=== PATIENT | female | born 1960 | race Caucasian/White ===

== ENCOUNTER 2020-08-20 15:09 | Inpatient (IN) ==
[2020-08-20] MEDS ORDERED: Naloxone 0.4 MG/ML INJ IVP PRN (17:33)
[2020-08-20] MEDS ORDERED: Vancomycin 1 EACH in 0.9 % Sodium Chloride 250 ML IVPB SCH (18:00)
[2020-08-20] MEDS ORDERED: Perflutren Lipid Microsphere 1.3 ML in 0.9 % Sodium Chloride 8.7 ML IVP PRN (18:05)
[2020-08-20] MEDS ORDERED: D5% in Water 1,000 ML IVC PRN (18:07)
[2020-08-20] MEDS ORDERED: Dextrose Gel 15 GM/37.5 ML TUBE PO PRN ×2 (18:07)
[2020-08-20] MEDS ORDERED: *HR* Dextrose 50 % in Water (Vial) 50 ML VIAL IVP PRN (18:07)
[2020-08-20] MEDS ORDERED: Vancomycin 1,250 MG/262.5 ML IV.SOLN IVPB ONE (18:26)
[2020-08-20] MEDS: Insulin LISPRO 300 UNITS/3 ML VIAL SUBQ SCH (18:27)
[2020-08-20] MEDS: Heparin 25,000UNIT/250ML 1/2NS 25,000 UNIT/250 ML IV.SOLN IVC SCH (18:27)
[2020-08-20 18:28] LABS: ABG Base Excess 3 mEq/L (-2 to 3); ABG HCO3 27 mEq/L (21-27); ABG Oxygen Saturation 98 % (95-98); ABG PCO2 40 mmHg (35-45); ABG PH 7.44 pH Units (7.32-7.45); ABG PO2 106 mmHg (85-104); ABG TCO2 29 mEq/L (20-26); Blood Gas Modality ASSIST CONTROL; Blood Gas VT 400 cc
[2020-08-20 18:38] LABS: Estimated Average Glucose 134 mg/dl; Hemoglobin A1C 6.3 %
[2020-08-20] MEDS ORDERED: Isovue-370 500 ML BOTTLE IVP ONE (19:05)
[2020-08-20] MEDS ORDERED: Furosemide 40 MG/4 ML VIAL IVP ONE (19:07)
[2020-08-20] MEDS: Piperacillin/Tazobactam 3.375 GM in 0.9 % Sodium Chloride Mini Bag 100 ML IVPB SCH (20:48)
[2020-08-21 00:25] LABS: Hematocrit 22.2 % (35.3-44.9); Hemoglobin 6.9 g/dL (11.5-15.4); Mean Corpuscular HGB Conc 31.1 g/dL (31.6-35.5); Mean Corpuscular Hemoglobin 28.6 pg (28.0-33.3); Mean Corpuscular Volume 92.1 fL (83.0-100.0); Mean Platelet Volume 9.3 fL (9.4-12.4); Monocytes # 1.8 K/mcL (0.0-1.3); Platelet Count 332 K/mcL (140-400); Red Blood Count 2.41 M/mcL (3.82-4.97); Red Cell Distribution Width 20.6 % (11.5-14.5)
[2020-08-21] MEDS ORDERED: *HR* Heparin 5,000 UNIT/ML VIAL IVP PRN (00:38)
[2020-08-21 00:42] LABS: Calcium 9.1 mg/dL (8.6-10.3); Potassium 4.1 mEq/L (3.5-5.1)
[2020-08-21 00:45] LABS: Troponin I 1.28 ng/mL (< 0.04)
[2020-08-21] MEDS: *HR* Heparin 5,000 UNIT/ML VIAL IVP PRN ×2 (00:52→16:57)
[2020-08-21 01:02] LABS: Anisocytosis 1+ (Not Present); Eosinophils # 0.5 K/mcL (0.0-0.6); Lymphocytes # 2.3 K/mcL (0.6-4.6); Neutrophils # 18.4 K/mcL (1.6-8.9); Platelet Estimate Normal (Normal); Poikilocytosis 1+ (Not Present); Toxic Granulation Present (Not Present)
[2020-08-21 01:03] LABS: Toxic Vacuolation Present (Not Present)
[2020-08-21] MEDS: Insulin LISPRO 300 UNITS/3 ML VIAL SUBQ SCH ×4 (01:38→18:43)
[2020-08-21] MEDS: Piperacillin/Tazobactam 3.375 GM in 0.9 % Sodium Chloride Mini Bag 100 ML IVPB SCH ×2 (04:15→18:43)
[2020-08-21] MEDS ORDERED: *HR* Heparin 10,000 UNIT/10 ML VIAL IV PRN (07:50)
[2020-08-21] MEDS ORDERED: 0.9 % Sodium Chloride 250 ML IVC PRN (07:50)
[2020-08-21] MEDS ORDERED: 0.9 % Sodium Chloride 1,000 ML PRIME SCH (08:00)
[2020-08-21 10:13] LABS: Hepatitis B Surface Antibody < 3.10 mIU/mL
[2020-08-21 10:24] LABS: Hepatitis B Surface Antigen Nonreactive (Nonreactive)
[2020-08-21] MEDS ORDERED: 0.9 % Sodium Chloride 250 ML IVC SCH (15:00)
[2020-08-21] MEDS: Ondansetron 4 MG/2 ML VIAL IVP PRN (16:23)
[2020-08-21] MEDS ORDERED: Pantoprazole 40 MG VIAL IVP ONE (17:45)
[2020-08-21] MEDS ORDERED: Pantoprazole 40 MG VIAL IVP SCH (18:00)
[2020-08-21 18:42] LABS: Hematocrit 27.5 % (35.3-44.9)
[2020-08-21] MEDS: Pantoprazole 40 MG in 0.9 % Sodium Chloride Mini Bag 100 ML IVC SCH (18:42)
[2020-08-21 18:50] LABS: Hemoglobin 8.8 g/dL (11.5-15.4)
[2020-08-22] MEDS: Pantoprazole 40 MG in 0.9 % Sodium Chloride Mini Bag 100 ML IVC SCH ×6 (00:03→23:57)
[2020-08-22] MEDS: Insulin LISPRO 300 UNITS/3 ML VIAL SUBQ SCH ×4 (00:15→18:06)
[2020-08-22] MEDS ORDERED: *HR* Labetalol 20 MG/4 ML SYRINGE IVP ONE (01:51)
[2020-08-22] MEDS: Piperacillin/Tazobactam 3.375 GM in 0.9 % Sodium Chloride Mini Bag 100 ML IVPB SCH ×2 (06:07→17:05)
[2020-08-22 07:15] LABS: Hematocrit 24.8 % (35.3-44.9); Hemoglobin 7.8 g/dL (11.5-15.4); Mean Corpuscular HGB Conc 31.5 g/dL (31.6-35.5); Mean Corpuscular Hemoglobin 28.6 pg (28.0-33.3); Mean Corpuscular Volume 90.8 fL (83.0-100.0); Mean Platelet Volume 9.3 fL (9.4-12.4); Platelet Count 317 K/mcL (140-400); Red Blood Count 2.73 M/mcL (3.82-4.97); Red Cell Distribution Width 19.7 % (11.5-14.5); White Blood Count 18.1 K/mcL (4.3-11.1)
[2020-08-22] MEDS ORDERED: *HR* Heparin 10,000 UNIT/10 ML VIAL IV PRN (07:24)
[2020-08-22] MEDS ORDERED: 0.9 % Sodium Chloride 250 ML IVC PRN (07:24)
[2020-08-22] MEDS ORDERED: 0.9 % Sodium Chloride 1,000 ML PRIME SCH (07:30)
[2020-08-22 07:34] LABS: Calcium 8.9 mg/dL (8.6-10.3); Potassium 3.2 mEq/L (3.5-5.1)
[2020-08-22] MEDS ORDERED: Lidocaine Viscous Oral Soln 15 ML SOLUTION ONE (08:06)
[2020-08-22 10:13] LABS: Hematocrit 25.1 % (35.3-44.9); Hemoglobin 8.2 g/dL (11.5-15.4)
[2020-08-22] MEDS: *HR* Metoprolol 5 MG/5 ML VIAL IVP SCH ×3 (11:51→23:57)
[2020-08-22] MEDS: Valproic Acid INJ 250 MG in 0.9 % Sodium Chloride 100 ML IVPB SCH ×2 (17:23→23:56)
[2020-08-23] MEDS: Insulin LISPRO 300 UNITS/3 ML VIAL SUBQ SCH ×4 (00:24→16:54)
[2020-08-23 01:36] LABS: Hematocrit 26.3 % (35.3-44.9); Hemoglobin 8.1 g/dL (11.5-15.4); Mean Corpuscular HGB Conc 30.8 g/dL (31.6-35.5); Mean Corpuscular Hemoglobin 28.2 pg (28.0-33.3); Mean Corpuscular Volume 91.6 fL (83.0-100.0); Mean Platelet Volume 8.9 fL (9.4-12.4); Platelet Count 296 K/mcL (140-400); Red Blood Count 2.87 M/mcL (3.82-4.97); Red Cell Distribution Width 19.3 % (11.5-14.5); White Blood Count 14.9 K/mcL (4.3-11.1)
[2020-08-23 01:55] LABS: Potassium 3.5 mEq/L (3.5-5.1)
[2020-08-23] MEDS: Pantoprazole 40 MG in 0.9 % Sodium Chloride Mini Bag 100 ML IVC SCH (05:03)
[2020-08-23] MEDS: Piperacillin/Tazobactam 3.375 GM in 0.9 % Sodium Chloride Mini Bag 100 ML IVPB SCH ×2 (06:00→16:55)
[2020-08-23] MEDS: *HR* Metoprolol 5 MG/5 ML VIAL IVP SCH ×3 (06:01→16:55)
[2020-08-23] MEDS ORDERED: 0.9 % Sodium Chloride 1,000 ML IVC SCH (08:00)
[2020-08-23] MEDS: Valproic Acid INJ 250 MG in 0.9 % Sodium Chloride 100 ML IVPB SCH ×2 (08:43→15:38)
[2020-08-23] MEDS ORDERED: *HR* Labetalol 20 MG/4 ML SYRINGE IVP ONE ×2 (08:51→15:10)
[2020-08-23] MEDS ORDERED: Vancomycin Oral Soln 125 MG/2.5 ML UDC GTUBE ONE (09:00)
[2020-08-23] MEDS: Heparin 25,000UNIT/250ML 1/2NS 25,000 UNIT/250 ML IV.SOLN IVC SCH (16:55)
[2020-08-23] MEDS: Pantoprazole 40 MG VIAL IVP SCH (16:55)
[2020-08-23] MEDS ORDERED: Lidocaine -MPF 2% 2 ML VIAL ONE (18:45)
[2020-08-23] MEDS ORDERED: *HR* Propofol 200 MG/20 ML VIAL IVP ONE (18:45)
[2020-08-24] MEDS: Valproic Acid INJ 250 MG in 0.9 % Sodium Chloride 100 ML IVPB SCH (00:18)
[2020-08-24] MEDS: *HR* Metoprolol 5 MG/5 ML VIAL IVP SCH ×2 (00:19→05:43)
[2020-08-24] MEDS: Insulin LISPRO 300 UNITS/3 ML VIAL SUBQ SCH ×4 (00:19→17:37)
[2020-08-24 03:30] LABS: Hematocrit 26.2 % (35.3-44.9); Hemoglobin 7.9 g/dL (11.5-15.4); Mean Corpuscular HGB Conc 30.2 g/dL (31.6-35.5); Mean Corpuscular Hemoglobin 28.3 pg (28.0-33.3); Mean Corpuscular Volume 93.9 fL (83.0-100.0); Mean Platelet Volume 9.2 fL (9.4-12.4); Platelet Count 278 K/mcL (140-400); Red Blood Count 2.79 M/mcL (3.82-4.97); White Blood Count 10.4 K/mcL (4.3-11.1)
[2020-08-24 03:45] LABS: Calcium 8.8 mg/dL (8.6-10.3); Potassium 3.1 mEq/L (3.5-5.1)
[2020-08-24] MEDS: Piperacillin/Tazobactam 3.375 GM in 0.9 % Sodium Chloride Mini Bag 100 ML IVPB SCH ×2 (05:42→17:36)
[2020-08-24] MEDS: Pantoprazole 40 MG VIAL IVP SCH (05:43)
[2020-08-24] MEDS ORDERED: *HR* LORazepam 0.5 MG TABLET GTUBE PRN (07:41)
[2020-08-24] MEDS ORDERED: Potassium Chloride 40 MEQ, Lidocaine 1% 2 ML in 0.9 % Sodium Chloride 500 ML IVPB ONE (07:41)
[2020-08-24] MEDS: Cyanocobalamin (B-12) 1,000 MCG TABLET GTUBE SCH (08:55)
[2020-08-24] MEDS: Lactobacillus 1 EACH CAP.SPRINK GTUBE SCH ×2 (11:11→20:36)
[2020-08-24] MEDS: Metoprolol 100 MG TABLET GTUBE SCH ×2 (11:11→20:35)
[2020-08-24] MEDS: QUEtiapine Fumarate 100 MG TABLET GTUBE SCH ×2 (11:11→20:35)
[2020-08-24] MEDS: lisinopriL 20 MG TABLET GTUBE SCH ×2 (11:11→20:35)
[2020-08-24] MEDS: Folic Acid 1 MG TABLET GTUBE SCH (11:12)
[2020-08-24] MEDS: Pyridoxine (B-6) 50 MG TABLET GTUBE SCH (11:12)
[2020-08-24] MEDS: Valproic Acid Oral Soln 250 MG/5 ML UDC GTUBE SCH ×3 (11:12→20:36)
[2020-08-24] MEDS: Psyllium 1 PACKET POWD.PACK GTUBE SCH ×2 (15:06→20:36)
[2020-08-25] MEDS: Insulin LISPRO 300 UNITS/3 ML VIAL SUBQ SCH ×4 (00:30→18:42)
[2020-08-25 03:50] LABS: Hemoglobin 7.8 g/dL (11.5-15.4); Mean Corpuscular Hemoglobin 28.4 pg (28.0-33.3); Mean Corpuscular Volume 94.5 fL (83.0-100.0); Mean Platelet Volume 9.4 fL (9.4-12.4); Platelet Count 266 K/mcL (140-400); Red Blood Count 2.75 M/mcL (3.82-4.97); White Blood Count 10.8 K/mcL (4.3-11.1)
[2020-08-25 04:11] LABS: Calcium 8.7 mg/dL (8.6-10.3); Potassium 3.4 mEq/L (3.5-5.1)
[2020-08-25] MEDS: Piperacillin/Tazobactam 3.375 GM in 0.9 % Sodium Chloride Mini Bag 100 ML IVPB SCH (05:27)
[2020-08-25] MEDS: Psyllium 1 PACKET POWD.PACK GTUBE SCH ×3 (08:53→20:27)
[2020-08-25] MEDS: Valproic Acid Oral Soln 250 MG/5 ML UDC GTUBE SCH ×3 (08:53→20:27)
[2020-08-25] MEDS: Lactobacillus 1 EACH CAP.SPRINK GTUBE SCH ×2 (08:53→20:26)
[2020-08-25] MEDS: Metoprolol 100 MG TABLET GTUBE SCH (08:53)
[2020-08-25] MEDS: lisinopriL 20 MG TABLET GTUBE SCH ×2 (08:53→20:27)
[2020-08-25] MEDS: QUEtiapine Fumarate 100 MG TABLET GTUBE SCH ×2 (08:53→20:27)
[2020-08-25] MEDS: Pyridoxine (B-6) 50 MG TABLET GTUBE SCH (08:54)
[2020-08-25 09:11] LABS: Magnesium 1.8 mg/dL (1.6-2.6)
[2020-08-25] MEDS: Folic Acid 1 MG TABLET GTUBE SCH (10:41)
[2020-08-25] MEDS: Renal Vitamin 1 CAP CAPSULE PO SCH (10:41)
[2020-08-25] MEDS: Isosorbide MONOnitrate (24 HR) 30 MG TAB.ER.24H PO SCH (11:37)
[2020-08-25] MEDS: cefTRIAXone 2,000 MG in Water for inj. (sterile) 20 ML IVP SCH (11:37)
[2020-08-25 14:59] LABS: Total Volume 24 Hour,Urine 0.55 Liters (0.60-1.60)
[2020-08-26 01:57] LABS: Hematocrit 25.1 % (35.3-44.9); Hemoglobin 7.4 g/dL (11.5-15.4); Mean Corpuscular HGB Conc 29.5 g/dL (31.6-35.5); Mean Corpuscular Hemoglobin 27.9 pg (28.0-33.3); Mean Corpuscular Volume 94.7 fL (83.0-100.0); Mean Platelet Volume 9.7 fL (9.4-12.4); Platelet Count 261 K/mcL (140-400); Red Blood Count 2.65 M/mcL (3.82-4.97); Red Cell Distribution Width 18.7 % (11.5-14.5); White Blood Count 12.4 K/mcL (4.3-11.1)
[2020-08-26 02:16] LABS: Calcium 8.6 mg/dL (8.6-10.3); Potassium 3.3 mEq/L (3.5-5.1)
[2020-08-26] MEDS: Insulin LISPRO 300 UNITS/3 ML VIAL SUBQ SCH ×4 (05:56→22:11)
[2020-08-26] MEDS: QUEtiapine Fumarate 100 MG TABLET GTUBE SCH ×2 (07:48→22:22)
[2020-08-26] MEDS: lisinopriL 20 MG TABLET GTUBE SCH ×2 (07:48→22:22)
[2020-08-26] MEDS: Psyllium 1 PACKET POWD.PACK GTUBE SCH ×3 (07:49→22:22)
[2020-08-26] MEDS: Lactobacillus 1 EACH CAP.SPRINK GTUBE SCH ×2 (07:49→22:22)
[2020-08-26] MEDS: Cyanocobalamin (B-12) 1,000 MCG TABLET GTUBE SCH (07:49)
[2020-08-26] MEDS: Pyridoxine (B-6) 50 MG TABLET GTUBE SCH (07:49)
[2020-08-26] MEDS: Isosorbide MONOnitrate (24 HR) 30 MG TAB.ER.24H PO SCH (07:49)
[2020-08-26] MEDS: Renal Vitamin 1 CAP CAPSULE PO SCH (07:49)
[2020-08-26] MEDS: Valproic Acid Oral Soln 250 MG/5 ML UDC GTUBE SCH ×3 (07:49→22:22)
[2020-08-26] MEDS ORDERED: Potassium Chloride 40 MEQ, Lidocaine 1% 2 ML in 0.9 % Sodium Chloride 500 ML IVPB ONE (08:08)
[2020-08-26] MEDS ORDERED: 0.9 % Sodium Chloride 250 ML IVC PRN (08:40)
[2020-08-26] MEDS ORDERED: *HR* Heparin 10,000 UNIT/10 ML VIAL IV PRN (08:40)
[2020-08-26 09:03] LABS: Hematocrit 24.8 % (35.3-44.9); Hemoglobin 7.3 g/dL (11.5-15.4)
[2020-08-26] MEDS: cefTRIAXone 2,000 MG in Water for inj. (sterile) 20 ML IVP SCH (13:13)
[2020-08-26] MEDS: Folic Acid 1 MG TABLET GTUBE SCH (13:13)
[2020-08-27 02:00] LABS: Hematocrit 25.9 % (35.3-44.9); Hemoglobin 7.7 g/dL (11.5-15.4); Mean Corpuscular HGB Conc 29.7 g/dL (31.6-35.5); Mean Corpuscular Hemoglobin 28.2 pg (28.0-33.3); Mean Corpuscular Volume 94.9 fL (83.0-100.0); Mean Platelet Volume 9.9 fL (9.4-12.4); Platelet Count 285 K/mcL (140-400); Red Blood Count 2.73 M/mcL (3.82-4.97); Red Cell Distribution Width 18.3 % (11.5-14.5); White Blood Count 10.6 K/mcL (4.3-11.1)
[2020-08-27 02:16] LABS: Calcium 8.6 mg/dL (8.6-10.3); Potassium 3.3 mEq/L (3.5-5.1)
[2020-08-27] MEDS: Insulin LISPRO 300 UNITS/3 ML VIAL SUBQ SCH ×4 (09:03→18:37)
[2020-08-27] MEDS: hydrALAZINE 25 MG TABLET GTUBE SCH ×3 (09:04→18:38)
[2020-08-27] MEDS: lisinopriL 20 MG TABLET GTUBE SCH ×2 (09:05→22:17)
[2020-08-27] MEDS: Cyanocobalamin (B-12) 1,000 MCG TABLET GTUBE SCH (09:06)
[2020-08-27] MEDS: QUEtiapine Fumarate 100 MG TABLET GTUBE SCH ×2 (09:06→22:17)
[2020-08-27] MEDS: Folic Acid 1 MG TABLET GTUBE SCH (09:07)
[2020-08-27] MEDS: Isosorbide MONOnitrate (24 HR) 30 MG TAB.ER.24H PO SCH (09:07)
[2020-08-27] MEDS: Psyllium 1 PACKET POWD.PACK GTUBE SCH ×3 (09:08→22:17)
[2020-08-27] MEDS: Renal Vitamin 1 CAP CAPSULE PO SCH (09:08)
[2020-08-27] MEDS: Pyridoxine (B-6) 50 MG TABLET GTUBE SCH (09:08)
[2020-08-27] MEDS: Valproic Acid Oral Soln 250 MG/5 ML UDC GTUBE SCH ×3 (09:08→22:17)
[2020-08-27] MEDS: Lactobacillus 1 EACH CAP.SPRINK GTUBE SCH ×2 (09:08→22:17)
[2020-08-27] MEDS: Ondansetron 4 MG/2 ML VIAL IVP PRN (09:58)
[2020-08-27] MEDS: cefTRIAXone 2,000 MG in Water for inj. (sterile) 20 ML IVP SCH (11:54)
[2020-08-27] MEDS ORDERED: Potassium Chloride Elixir 20 MEQ/15 ML UDC GTUBE ONE (14:39)
[2020-08-28] MEDS: hydrALAZINE 25 MG TABLET GTUBE SCH ×5 (00:56→23:16)
[2020-08-28] MEDS: Insulin LISPRO 300 UNITS/3 ML VIAL SUBQ SCH ×5 (00:57→23:16)
[2020-08-28 08:18] LABS: Calcium 8.6 mg/dL (8.6-10.3); Potassium 3.5 mEq/L (3.5-5.1)
[2020-08-28 08:28] LABS: Hemoglobin 7.3 g/dL (11.5-15.4); Mean Corpuscular HGB Conc 29.2 g/dL (31.6-35.5); Mean Corpuscular Hemoglobin 27.9 pg (28.0-33.3); Mean Corpuscular Volume 95.4 fL (83.0-100.0); Mean Platelet Volume 9.9 fL (9.4-12.4); Platelet Count 286 K/mcL (140-400); Red Blood Count 2.62 M/mcL (3.82-4.97); Red Cell Distribution Width 18.1 % (11.5-14.5); White Blood Count 11.6 K/mcL (4.3-11.1)
[2020-08-28] MEDS: QUEtiapine Fumarate 100 MG TABLET GTUBE SCH ×2 (09:00→21:16)
[2020-08-28] MEDS: Isosorbide MONOnitrate (24 HR) 30 MG TAB.ER.24H PO SCH (09:01)
[2020-08-28] MEDS: lisinopriL 20 MG TABLET GTUBE SCH ×2 (09:01→21:17)
[2020-08-28 10:40] LABS: Influenza A PCR Negative (Negative); Influenza B PCR Negative (Negative); Resp. Syncytial Virus PCR Negative (Negative)
[2020-08-28] MEDS: Cyanocobalamin (B-12) 1,000 MCG TABLET GTUBE SCH (10:41)
[2020-08-28] MEDS: Pyridoxine (B-6) 50 MG TABLET GTUBE SCH (10:42)
[2020-08-28] MEDS: Renal Vitamin 1 CAP CAPSULE PO SCH (10:42)
[2020-08-28] MEDS: Folic Acid 1 MG TABLET GTUBE SCH (10:42)
[2020-08-28] MEDS: Psyllium 1 PACKET POWD.PACK GTUBE SCH ×3 (10:42→21:17)
[2020-08-28] MEDS: Valproic Acid Oral Soln 250 MG/5 ML UDC GTUBE SCH ×3 (10:42→23:03)
[2020-08-28] MEDS: Lactobacillus 1 EACH CAP.SPRINK GTUBE SCH ×2 (10:43→21:17)
[2020-08-28 10:47] LABS: SARS-CoV-2 by PCR (In House) Negative (Negative)
[2020-08-28] MEDS ORDERED: Acetaminophen IV 500 MG/50 ML BAG IVPB ONE (11:19)
[2020-08-28] MEDS: cefTRIAXone 2,000 MG in Water for inj. (sterile) 20 ML IVP SCH (11:43)
[2020-08-28] MEDS: MethylPREDNISolone 40 MG/ML VIAL IVP SCH ×2 (12:30→21:16)
[2020-08-28] MEDS ORDERED: SODIUM CHLORIDE/NAHCO3/KCL/PEG 4,000 ML SOLN.RECON PO ONE (17:00)
[2020-08-29 02:52] LABS: Hematocrit 26.2 % (35.3-44.9); Hemoglobin 8.1 g/dL (11.5-15.4); Mean Corpuscular HGB Conc 30.9 g/dL (31.6-35.5); Mean Corpuscular Hemoglobin 28.3 pg (28.0-33.3); Mean Corpuscular Volume 91.6 fL (83.0-100.0); Mean Platelet Volume 9.9 fL (9.4-12.4); Platelet Count 306 K/mcL (140-400); Red Blood Count 2.86 M/mcL (3.82-4.97); Red Cell Distribution Width 17.4 % (11.5-14.5); White Blood Count 16.8 K/mcL (4.3-11.1)
[2020-08-29 03:28] LABS: Calcium 8.9 mg/dL (8.6-10.3); Potassium 4.4 mEq/L (3.5-5.1)
[2020-08-29] MEDS: hydrALAZINE 25 MG TABLET GTUBE SCH ×3 (04:52→17:42)
[2020-08-29] MEDS: MethylPREDNISolone 40 MG/ML VIAL IVP SCH ×3 (04:52→20:05)
[2020-08-29] MEDS: Insulin LISPRO 300 UNITS/3 ML VIAL SUBQ SCH ×3 (04:53→17:43)
[2020-08-29] MEDS ORDERED: 0.9 % Sodium Chloride 2,000 ML ONE (07:12)
[2020-08-29] MEDS ORDERED: 0.9 % Sodium Chloride 250 ML IVC PRN (08:14)
[2020-08-29] MEDS ORDERED: *HR* Heparin 10,000 UNIT/10 ML VIAL IV PRN ×2 (08:14)
[2020-08-29] MEDS ORDERED: 0.9 % Sodium Chloride 1,000 ML PRIME SCH (08:15)
[2020-08-29] MEDS: Valproic Acid Oral Soln 250 MG/5 ML UDC GTUBE SCH ×3 (10:07→20:05)
[2020-08-29] MEDS: lisinopriL 20 MG TABLET GTUBE SCH ×2 (10:08→20:03)
[2020-08-29] MEDS: Isosorbide MONOnitrate (24 HR) 30 MG TAB.ER.24H PO SCH (10:08)
[2020-08-29] MEDS: Renal Vitamin 1 CAP CAPSULE PO SCH (10:09)
[2020-08-29] MEDS: Cyanocobalamin (B-12) 1,000 MCG TABLET GTUBE SCH (10:09)
[2020-08-29] MEDS: Lactobacillus 1 EACH CAP.SPRINK GTUBE SCH ×2 (10:09→20:03)
[2020-08-29] MEDS: Folic Acid 1 MG TABLET GTUBE SCH (10:09)
[2020-08-29] MEDS: Psyllium 1 PACKET POWD.PACK GTUBE SCH ×3 (10:09→20:03)
[2020-08-29] MEDS: Pyridoxine (B-6) 50 MG TABLET GTUBE SCH (10:09)
[2020-08-29] MEDS: QUEtiapine Fumarate 100 MG TABLET GTUBE SCH ×2 (10:10→20:04)
[2020-08-29] MEDS ORDERED: Lidocaine -MPF 2% 5 ML VIAL ONE (12:18)
[2020-08-29] MEDS ORDERED: *HR* Propofol 200 MG/20 ML VIAL IVP ONE ×2 (12:18→13:15)
[2020-08-29] MEDS: cefTRIAXone 2,000 MG in Water for inj. (sterile) 20 ML IVP SCH (12:31)
[2020-08-29] MEDS ORDERED: Simethicone 40 MG/0.6 ML MLS IR ONE (12:32)
[2020-08-29] MEDS ORDERED: *HR* Metoprolol 5 MG/5 ML VIAL IVP ONE (12:52)
[2020-08-29] MEDS: GuaiFENesin Liq 200 MG/10 ML UDC GTUBE PRN (15:05)
[2020-08-29] MEDS: Meropenem 500 MG in 0.9 % Sodium Chloride Mini Bag 100 ML IVPB SCH (16:34)
[2020-08-30 01:33] LABS: Basophils % 0.1 %; Hematocrit 26.6 % (35.3-44.9); Hemoglobin 8.4 g/dL (11.5-15.4); Immature Granulocytes % 0.5 % (0-4); Lymphocytes # 0.7 K/mcL (0.6-4.6); Lymphocytes % 6.2 %; Mean Corpuscular HGB Conc 31.6 g/dL (31.6-35.5); Mean Corpuscular Hemoglobin 28.9 pg (28.0-33.3); Mean Corpuscular Volume 91.4 fL (83.0-100.0); Monocytes # 0.2 K/mcL (0.0-1.3); Monocytes % 1.5 %; Neutrophils # 10.8 K/mcL (1.6-8.9); Platelet Count 370 K/mcL (140-400); Red Blood Count 2.91 M/mcL (3.82-4.97); Red Cell Distribution Width 17.6 % (11.5-14.5); Segmented Neutrophils % 91.7 %; White Blood Count 11.8 K/mcL (4.3-11.1)
[2020-08-30 01:54] LABS: Calcium 8.5 mg/dL (8.6-10.3); Potassium 4.3 mEq/L (3.5-5.1)
[2020-08-30] MEDS: Insulin LISPRO 300 UNITS/3 ML VIAL SUBQ SCH ×4 (02:12→18:10)
[2020-08-30] MEDS: hydrALAZINE 25 MG TABLET GTUBE SCH ×4 (02:12→18:09)
[2020-08-30] MEDS: MethylPREDNISolone 40 MG/ML VIAL IVP SCH ×2 (03:31→11:44)
[2020-08-30] MEDS: Renal Vitamin 1 CAP CAPSULE PO SCH (09:20)
[2020-08-30] MEDS: QUEtiapine Fumarate 100 MG TABLET GTUBE SCH ×2 (09:20→21:06)
[2020-08-30] MEDS: Lactobacillus 1 EACH CAP.SPRINK GTUBE SCH ×2 (09:20→21:06)
[2020-08-30] MEDS: Folic Acid 1 MG TABLET GTUBE SCH (09:20)
[2020-08-30] MEDS: Isosorbide MONOnitrate (24 HR) 30 MG TAB.ER.24H PO SCH (09:21)
[2020-08-30] MEDS: lisinopriL 20 MG TABLET GTUBE SCH ×2 (09:21→21:06)
[2020-08-30] MEDS: Cyanocobalamin (B-12) 1,000 MCG TABLET GTUBE SCH (09:21)
[2020-08-30] MEDS: Pyridoxine (B-6) 50 MG TABLET GTUBE SCH (09:22)
[2020-08-30] MEDS: Valproic Acid Oral Soln 250 MG/5 ML UDC GTUBE SCH ×3 (09:22→21:06)
[2020-08-30] MEDS: Aspirin 81 MG TAB.CHEW GTUBE SCH (09:22)
[2020-08-30] MEDS: Psyllium 1 PACKET POWD.PACK GTUBE SCH ×3 (09:22→21:06)
[2020-08-30] MEDS ORDERED: Insulin DETEMIR 100 UNIT/ML X5UNITS SUBQ SCH (11:00)
[2020-08-30] MEDS: *HR* Heparin 5,000 UNIT/ML VIAL SQ SCH ×2 (11:44→18:12)
[2020-08-30] MEDS: Meropenem 500 MG in 0.9 % Sodium Chloride Mini Bag 100 ML IVPB SCH (15:42)
[2020-08-31] MEDS: GuaiFENesin Liq 200 MG/10 ML UDC GTUBE PRN ×2 (00:16→20:01)
[2020-08-31] MEDS: hydrALAZINE 25 MG TABLET GTUBE SCH ×4 (00:16→16:57)
[2020-08-31] MEDS: Insulin LISPRO 300 UNITS/3 ML VIAL SUBQ SCH ×4 (00:17→16:57)
[2020-08-31] MEDS: *HR* Heparin 5,000 UNIT/ML VIAL SQ SCH ×3 (03:20→16:57)
[2020-08-31 05:45] LABS: Hematocrit 26.5 % (35.3-44.9); Hemoglobin 8.4 g/dL (11.5-15.4); Mean Corpuscular HGB Conc 31.7 g/dL (31.6-35.5); Mean Corpuscular Volume 91.4 fL (83.0-100.0); Mean Platelet Volume 9.7 fL (9.4-12.4); Platelet Count 366 K/mcL (140-400); Red Cell Distribution Width 17.1 % (11.5-14.5); White Blood Count 14.4 K/mcL (4.3-11.1)
[2020-08-31 06:02] LABS: Calcium 8.5 mg/dL (8.6-10.3); Potassium 4.2 mEq/L (3.5-5.1)
[2020-08-31] MEDS: Insulin DETEMIR 100 UNIT/ML X5UNITS SUBQ SCH (09:30)
[2020-08-31] MEDS: MethylPREDNISolone 40 MG/ML VIAL IVP SCH ×2 (09:30→20:00)
[2020-08-31] MEDS: Aspirin 81 MG TAB.CHEW GTUBE SCH (09:31)
[2020-08-31] MEDS: Folic Acid 1 MG TABLET GTUBE SCH (09:31)
[2020-08-31] MEDS: Valproic Acid Oral Soln 250 MG/5 ML UDC GTUBE SCH ×3 (09:31→20:00)
[2020-08-31] MEDS: Cyanocobalamin (B-12) 1,000 MCG TABLET GTUBE SCH (09:31)
[2020-08-31] MEDS: Pyridoxine (B-6) 50 MG TABLET GTUBE SCH (09:32)
[2020-08-31] MEDS: Lactobacillus 1 EACH CAP.SPRINK GTUBE SCH ×2 (09:32→20:01)
[2020-08-31] MEDS: Psyllium 1 PACKET POWD.PACK GTUBE SCH ×3 (09:32→20:02)
[2020-08-31] MEDS: lisinopriL 20 MG TABLET GTUBE SCH ×2 (09:32→20:00)
[2020-08-31] MEDS: Isosorbide MONOnitrate (24 HR) 30 MG TAB.ER.24H PO SCH (09:35)
[2020-08-31] MEDS: Renal Vitamin 1 CAP CAPSULE PO SCH (09:36)
[2020-08-31] MEDS: QUEtiapine Fumarate 100 MG TABLET GTUBE SCH ×2 (09:36→20:01)
[2020-08-31] MEDS: Meropenem 500 MG in 0.9 % Sodium Chloride Mini Bag 100 ML IVPB SCH (16:56)
[2020-09-01] MEDS: Insulin LISPRO 300 UNITS/3 ML VIAL SUBQ SCH ×3 (00:41→12:37)
[2020-09-01] MEDS: hydrALAZINE 25 MG TABLET GTUBE SCH ×3 (00:42→12:38)
[2020-09-01] MEDS: *HR* Heparin 5,000 UNIT/ML VIAL SQ SCH ×2 (02:51→12:34)
[2020-09-01] MEDS: MethylPREDNISolone 40 MG/ML VIAL IVP SCH (08:16)
[2020-09-01] MEDS: lisinopriL 20 MG TABLET GTUBE SCH (08:16)
[2020-09-01] MEDS: QUEtiapine Fumarate 100 MG TABLET GTUBE SCH (08:16)
[2020-09-01] MEDS: Valproic Acid Oral Soln 250 MG/5 ML UDC GTUBE SCH (08:16)
[2020-09-01] MEDS: Pyridoxine (B-6) 50 MG TABLET GTUBE SCH (08:16)
[2020-09-01] MEDS: Insulin DETEMIR 100 UNIT/ML X5UNITS SUBQ SCH (08:16)
[2020-09-01] MEDS: Cyanocobalamin (B-12) 1,000 MCG TABLET GTUBE SCH (08:17)
[2020-09-01] MEDS: Folic Acid 1 MG TABLET GTUBE SCH (08:17)
[2020-09-01] MEDS: Lactobacillus 1 EACH CAP.SPRINK GTUBE SCH (08:17)
[2020-09-01] MEDS: Psyllium 1 PACKET POWD.PACK GTUBE SCH (08:17)
[2020-09-01] MEDS: Aspirin 81 MG TAB.CHEW GTUBE SCH (08:17)
[2020-09-01] MEDS: Renal Vitamin 1 CAP CAPSULE PO SCH (08:18)
[2020-09-01] MEDS: Isosorbide MONOnitrate (24 HR) 30 MG TAB.ER.24H PO SCH (08:18)
[2020-09-01 11:21] VITALS: BP 161/69
[2020-09-01] MEDS: Meropenem 500 MG in 0.9 % Sodium Chloride Mini Bag 100 ML IVPB SCH (15:24)
[2020-09-01 16:02] LABS: Calcium 8.4 mg/dL (8.6-10.3); Potassium 4.8 mEq/L (3.5-5.1)
== END 2020-09-01 16:35 | DRG 720 ==
LOC: 2NNU → SUATTDRO 17:33
PROVIDERS: ADMIT Internal Medicine; ATTEND Internal Medicine

== ENCOUNTER 2020-09-20 07:53 | Observation (INO) ==
[2020-09-20] MEDS ORDERED: Pantoprazole 40 MG VIAL IVP ONE (08:20)
[2020-09-20 09:15] LABS: Basophils % 0.3 %; Eosinophils # 0.3 K/mcL (0.0-0.6); Eosinophils % 3.4 %; Hematocrit 21.9 % (35.3-44.9); Immature Granulocytes % 0.9 % (0-4); Lymphocytes % 22.1 %; Mean Corpuscular Hemoglobin 29.5 pg (28.0-33.3); Mean Corpuscular Volume 92.4 fL (83.0-100.0); Mean Platelet Volume 10.2 fL (9.4-12.4); Monocytes # 0.8 K/mcL (0.0-1.3); Monocytes % 9.1 %; Neutrophils # 5.9 K/mcL (1.6-8.9); Platelet Count 289 K/mcL (140-400); Red Blood Count 2.37 M/mcL (3.82-4.97); Red Cell Distribution Width 18.1 % (11.5-14.5); Segmented Neutrophils % 64.2 %; White Blood Count 9.2 K/mcL (4.3-11.1)
[2020-09-20 09:23] LABS: INR 1.2; Prothrombin Time 13.9 Seconds (9.4-12.1)
[2020-09-20 09:38] LABS: Calcium 8.3 mg/dL (8.6-10.3)
[2020-09-20] MEDS ORDERED: *HR* HYDROcodone/Acet 5/325 mg TABLET PO PRN (10:02)
[2020-09-20] MEDS ORDERED: D5% in Water 1,000 ML IVC PRN ×2 (10:02→17:33)
[2020-09-20] MEDS ORDERED: Dextrose Gel 15 GM/37.5 ML TUBE PO PRN ×2 (10:02)
[2020-09-20] MEDS ORDERED: Naloxone 0.4 MG/ML INJ IVP PRN (10:02)
[2020-09-20] MEDS ORDERED: Acetaminophen 325 MG TABLET PO PRN (10:02)
[2020-09-20] MEDS ORDERED: *HR* Dextrose 50 % in Water (Vial) 50 ML VIAL IVP PRN (10:02)
[2020-09-20] MEDS ORDERED: Ondansetron ODT 4 MG TAB.RAPDIS SL PRN (10:02)
[2020-09-20] MEDS ORDERED: 0.9 % Sodium Chloride 1,000 ML ONE ×2 (10:22→13:13)
[2020-09-20] MEDS: Insulin LISPRO 300 UNITS/3 ML VIAL SUBQ SCH ×2 (16:00→17:17)
[2020-09-20] MEDS: *HR* Heparin 5,000 UNIT/ML VIAL SQ SCH ×2 (16:01→22:58)
[2020-09-20 18:38] LABS: Hepatitis B Surface Antibody < 3.10 mIU/mL
[2020-09-20 18:49] LABS: Hepatitis B Surface Antigen Nonreactive (Nonreactive)
[2020-09-20] MEDS ORDERED: Insulin LISPRO 300 UNITS/3 ML VIAL SUBQ SCH (21:00)
[2020-09-20] MEDS ORDERED: NON-FORMULARY MEDICATION 1 EACH EACH (Ondansetron Hcl [Zofran] 4 MG Tablet) GTUBE PRN (21:41)
[2020-09-20] MEDS ORDERED: Ipratropium/Albuterol Neb 3 ML IH PRN (21:41)
[2020-09-20] MEDS: hydrALAZINE 25 MG TABLET GTUBE SCH (23:17)
[2020-09-20] MEDS: Metoprolol 100 MG TABLET GTUBE SCH (23:46)
[2020-09-20] MEDS: lisinopriL 20 MG TABLET GTUBE SCH (23:47)
[2020-09-20] MEDS: QUEtiapine Fumarate 100 MG TABLET GTUBE SCH (23:47)
[2020-09-21] MEDS: Insulin LISPRO 300 UNITS/3 ML VIAL SUBQ SCH ×4 (00:30→12:09)
[2020-09-21 01:20] LABS: Hematocrit 25.5 % (35.3-44.9); Hemoglobin 8.1 g/dL (11.5-15.4); Mean Corpuscular HGB Conc 31.8 g/dL (31.6-35.5); Mean Corpuscular Volume 91.4 fL (83.0-100.0); Mean Platelet Volume 10.3 fL (9.4-12.4); Platelet Count 294 K/mcL (140-400); Red Blood Count 2.79 M/mcL (3.82-4.97); Red Cell Distribution Width 17.2 % (11.5-14.5)
[2020-09-21 01:42] LABS: Calcium 8.3 mg/dL (8.6-10.3); Magnesium 1.8 mg/dL (1.6-2.6); Potassium 4.1 mEq/L (3.5-5.1)
[2020-09-21] MEDS: *HR* Heparin 5,000 UNIT/ML VIAL SQ SCH (06:49)
[2020-09-21] MEDS: hydrALAZINE 25 MG TABLET GTUBE SCH ×2 (06:49→12:05)
[2020-09-21] MEDS ORDERED: *HR* Heparin 10,000 UNIT/10 ML VIAL IV PRN (07:27)
[2020-09-21] MEDS ORDERED: 0.9 % Sodium Chloride 250 ML IVC PRN (07:27)
[2020-09-21] MEDS ORDERED: 0.9 % Sodium Chloride 1,000 ML PRIME SCH (07:30)
[2020-09-21] MEDS: QUEtiapine Fumarate 100 MG TABLET GTUBE SCH (07:54)
[2020-09-21] MEDS: lisinopriL 20 MG TABLET GTUBE SCH (07:55)
[2020-09-21] MEDS: Metoprolol 100 MG TABLET GTUBE SCH (07:55)
[2020-09-21] MEDS ORDERED: Aspirin 81 MG TAB.CHEW GTUBE SCH (09:00)
[2020-09-21] MEDS ORDERED: Ferrous Sulfate Oral Soln 300 MG/5 ML UDC GTUBE SCH (09:00)
[2020-09-21] MEDS ORDERED: Valproic Acid Oral Soln 250 MG/5 ML UDC GTUBE SCH (09:00)
[2020-09-21] MEDS ORDERED: Lactobacillus 1 EACH CAP.SPRINK GTUBE SCH (09:00)
[2020-09-21] MEDS ORDERED: Insulin DETEMIR 100 UNIT/ML X5UNITS SUBQ SCH ×2 (09:00)
[2020-09-21] MEDS ORDERED: Folic Acid 1 MG TABLET GTUBE SCH (09:00)
[2020-09-21] MEDS ORDERED: Ipratropium/Albuterol Neb 3 ML IH SCH (10:00)
[2020-09-21 12:02] VITALS: BP 180/89
== END 2020-09-21 16:02 ==
LOC: 2NNU 07:53 → EMEROOARM 07:53 → SUATTDRO 12:40 → 2NNU 14:19
PROVIDERS: ADMIT Internal Medicine; ATTEND Internal Medicine

== ENCOUNTER 2020-09-29 10:23 | Inpatient (IN) ==
[2020-09-29] MEDS ORDERED: Naloxone 0.4 MG/ML INJ IVP PRN (13:00)
[2020-09-29] MEDS ORDERED: Ipratropium/Albuterol Neb 3 ML IH PRN (13:44)
[2020-09-29] MEDS ORDERED: Ondansetron ODT 4 MG TAB.RAPDIS GTUBE PRN (13:44)
[2020-09-29] MEDS ORDERED: Dextrose Gel 15 GM/37.5 ML TUBE PO PRN ×2 (14:56)
[2020-09-29] MEDS: *HR* Heparin 5,000 UNIT/ML VIAL SQ SCH ×2 (15:26→23:59)
[2020-09-29] MEDS: Valproic Acid Oral Soln 250 MG/5 ML UDC GTUBE SCH ×2 (15:26→21:44)
[2020-09-29] MEDS: Acetaminophen 325 MG TABLET PO PRN (15:35)
[2020-09-29] MEDS: *HR* Dextrose 50 % in Water (Vial) 50 ML VIAL IVP PRN (18:18)
[2020-09-29] MEDS: Insulin LISPRO 300 UNITS/3 ML VIAL SUBQ SCH (18:23)
[2020-09-29] MEDS: Ferrous Sulfate Oral Soln 300 MG/5 ML UDC GTUBE SCH (21:44)
[2020-09-29] MEDS: QUEtiapine Fumarate 100 MG TABLET GTUBE SCH (21:44)
[2020-09-29] MEDS: Ipratropium/Albuterol Neb 3 ML IH SCH (21:49)
[2020-09-30] MEDS: Acetaminophen 325 MG TABLET PO PRN
[2020-09-30] MEDS: *HR* Dextrose 50 % in Water (Vial) 50 ML VIAL IVP PRN (00:01)
[2020-09-30] MEDS ORDERED: Acetaminophen IV 500 MG/50 ML BAG IVPB ONE (04:00)
[2020-09-30] MEDS: Piperacillin/Tazobactam 3.375 GM in 0.9 % Sodium Chloride Mini Bag 100 ML IVPB SCH ×3 (05:01→20:29)
[2020-09-30] MEDS: Insulin LISPRO 300 UNITS/3 ML VIAL SUBQ SCH ×4 (05:42→19:34)
[2020-09-30 05:50] LABS: Basophils # 0.1 K/mcL (0.0-0.2); Basophils % 0.4 %; Eosinophils # 0.1 K/mcL (0.0-0.6); Eosinophils % 0.3 %; Hematocrit 24.8 % (35.3-44.9); Hemoglobin 7.6 g/dL (11.5-15.4); Immature Granulocytes % 1.8 % (0-4); Lymphocytes # 2.2 K/mcL (0.6-4.6); Lymphocytes % 10.4 %; Mean Corpuscular HGB Conc 30.6 g/dL (31.6-35.5); Mean Corpuscular Hemoglobin 29.3 pg (28.0-33.3); Mean Corpuscular Volume 95.8 fL (83.0-100.0); Mean Platelet Volume 9.9 fL (9.4-12.4); Monocytes # 1.8 K/mcL (0.0-1.3); Monocytes % 8.3 %; Neutrophils # 16.7 K/mcL (1.6-8.9); Platelet Count 342 K/mcL (140-400); Red Blood Count 2.59 M/mcL (3.82-4.97); Red Cell Distribution Width 18.3 % (11.5-14.5); Segmented Neutrophils % 78.8 %; White Blood Count 21.2 K/mcL (4.3-11.1)
[2020-09-30] MEDS ORDERED: Cefepime HCl 2,000 MG in Water for inj. (sterile) 20 ML IVP SCH (06:00)
[2020-09-30 06:11] LABS: Calcium 8.5 mg/dL (8.6-10.3); Potassium 4.1 mEq/L (3.5-5.1)
[2020-09-30] MEDS: Ipratropium/Albuterol Neb 3 ML IH SCH ×2 (07:31→19:55)
[2020-09-30] MEDS: Folic Acid 1 MG TABLET GTUBE SCH (09:21)
[2020-09-30] MEDS: *HR* Heparin 5,000 UNIT/ML VIAL SQ SCH ×3 (09:21→23:13)
[2020-09-30] MEDS: Aspirin 81 MG TAB.CHEW GTUBE SCH (09:21)
[2020-09-30] MEDS: Ferrous Sulfate Oral Soln 300 MG/5 ML UDC GTUBE SCH ×2 (09:22→20:29)
[2020-09-30] MEDS: QUEtiapine Fumarate 100 MG TABLET GTUBE SCH ×2 (09:22→20:29)
[2020-09-30] MEDS: FOLIC ACID GTUBE SCH (09:22)
[2020-09-30] MEDS: Cyanocobalamin (B-12) 1,000 MCG TABLET GTUBE SCH (09:22)
[2020-09-30] MEDS: VIT BCOMP C GTUBE SCH (09:22)
[2020-09-30] MEDS: Pyridoxine (B-6) 50 MG TABLET GTUBE SCH (09:22)
[2020-09-30] MEDS: Insulin DETEMIR 100 UNIT/ML X5UNITS SUBQ SCH (09:24)
[2020-09-30] MEDS: Valproic Acid Oral Soln 250 MG/5 ML UDC GTUBE SCH ×3 (09:24→20:29)
[2020-10-01] MEDS: Insulin LISPRO 300 UNITS/3 ML VIAL SUBQ SCH ×4 (00:20→18:23)
[2020-10-01] MEDS: *HR* Dextrose 50 % in Water (Vial) 50 ML VIAL IVP PRN ×2 (00:29→01:43)
[2020-10-01 01:54] LABS: Basophils % 0.2 %; Eosinophils # 0.1 K/mcL (0.0-0.6); Eosinophils % 0.8 %; Hematocrit 24.8 % (35.3-44.9); Hemoglobin 7.8 g/dL (11.5-15.4); Immature Granulocytes % 1.5 % (0-4); Lymphocytes # 1.2 K/mcL (0.6-4.6); Lymphocytes % 8.3 %; Mean Corpuscular HGB Conc 31.5 g/dL (31.6-35.5); Mean Corpuscular Volume 95.4 fL (83.0-100.0); Mean Platelet Volume 10.1 fL (9.4-12.4); Monocytes # 1.4 K/mcL (0.0-1.3); Monocytes % 9.9 %; Neutrophils # 11.4 K/mcL (1.6-8.9); Platelet Count 327 K/mcL (140-400); Red Cell Distribution Width 18.4 % (11.5-14.5); Segmented Neutrophils % 79.3 %; White Blood Count 14.4 K/mcL (4.3-11.1)
[2020-10-01 02:07] LABS: Calcium 8.7 mg/dL (8.6-10.3)
[2020-10-01] MEDS ORDERED: *HR* HYDROcodone/Acet 5/325 mg TABLET GTUBE ONE (03:44)
[2020-10-01] MEDS: D5% in Water 1,000 ML IVC PRN ×3 (03:57→22:39)
[2020-10-01] MEDS: Piperacillin/Tazobactam 3.375 GM in 0.9 % Sodium Chloride Mini Bag 100 ML IVPB SCH ×3 (03:58→21:23)
[2020-10-01] MEDS: Ipratropium/Albuterol Neb 3 ML IH SCH ×2 (07:55→20:06)
[2020-10-01] MEDS: Pyridoxine (B-6) 50 MG TABLET GTUBE SCH (08:53)
[2020-10-01] MEDS: Ferrous Sulfate Oral Soln 300 MG/5 ML UDC GTUBE SCH ×2 (08:53→21:23)
[2020-10-01] MEDS: Valproic Acid Oral Soln 250 MG/5 ML UDC GTUBE SCH ×3 (08:53→21:23)
[2020-10-01] MEDS: Cyanocobalamin (B-12) 1,000 MCG TABLET GTUBE SCH (08:53)
[2020-10-01] MEDS: Aspirin 81 MG TAB.CHEW GTUBE SCH (08:53)
[2020-10-01] MEDS: QUEtiapine Fumarate 100 MG TABLET GTUBE SCH ×2 (08:54→22:31)
[2020-10-01] MEDS: *HR* LORazepam 0.5 MG TABLET PO SCH ×3 (08:54→18:23)
[2020-10-01] MEDS: hydrALAZINE 10 MG TABLET PO SCH ×2 (08:54→11:35)
[2020-10-01] MEDS: Folic Acid 1 MG TABLET GTUBE SCH (08:54)
[2020-10-01] MEDS: Metoprolol 100 MG TABLET GTUBE SCH ×2 (08:54→21:23)
[2020-10-01] MEDS: *HR* Heparin 5,000 UNIT/ML VIAL SQ SCH ×3 (08:55→23:53)
[2020-10-01] MEDS: FOLIC ACID GTUBE SCH (08:55)
[2020-10-01] MEDS: VIT BCOMP C GTUBE SCH (08:55)
[2020-10-01] MEDS: Insulin DETEMIR 100 UNIT/ML X5UNITS SUBQ SCH (08:58)
[2020-10-02] MEDS: Insulin LISPRO 300 UNITS/3 ML VIAL SUBQ SCH ×4 (00:33→18:45)
[2020-10-02 00:52] LABS: Basophils % 0.3 %; Eosinophils # 0.2 K/mcL (0.0-0.6); Eosinophils % 1.8 %; Hematocrit 23.4 % (35.3-44.9); Hemoglobin 7.5 g/dL (11.5-15.4); Immature Granulocytes % 2.6 % (0-4); Lymphocytes # 1.5 K/mcL (0.6-4.6); Lymphocytes % 14.2 %; Mean Corpuscular HGB Conc 32.1 g/dL (31.6-35.5); Mean Corpuscular Hemoglobin 30.5 pg (28.0-33.3); Mean Corpuscular Volume 95.1 fL (83.0-100.0); Mean Platelet Volume 9.9 fL (9.4-12.4); Monocytes # 1.2 K/mcL (0.0-1.3); Monocytes % 11.2 %; Neutrophils # 7.6 K/mcL (1.6-8.9); Platelet Count 299 K/mcL (140-400); Red Blood Count 2.46 M/mcL (3.82-4.97); Segmented Neutrophils % 69.9 %; White Blood Count 10.9 K/mcL (4.3-11.1)
[2020-10-02] MEDS ORDERED: Piperacillin/Tazobactam 3.375 GM in 0.9 % Sodium Chloride Mini Bag 100 ML IVPB SCH (01:00)
[2020-10-02 01:13] LABS: Calcium 8.6 mg/dL (8.6-10.3); Potassium 4.2 mEq/L (3.5-5.1)
[2020-10-02] MEDS: Piperacillin/Tazobactam 3.375 GM in 0.9 % Sodium Chloride Mini Bag 100 ML IVPB SCH ×2 (05:45→17:03)
[2020-10-02] MEDS: Ipratropium/Albuterol Neb 3 ML IH SCH ×2 (07:28→21:46)
[2020-10-02] MEDS ORDERED: 0.9 % Sodium Chloride 250 ML IVC PRN (07:31)
[2020-10-02] MEDS ORDERED: 0.9 % Sodium Chloride 1,000 ML PRIME SCH (07:45)
[2020-10-02] MEDS ORDERED: *HR* Heparin 10,000 UNIT/10 ML VIAL IV PRN (12:47)
[2020-10-02] MEDS: *HR* LORazepam 0.5 MG TABLET PO SCH ×2 (13:16→17:02)
[2020-10-02] MEDS: Cyanocobalamin (B-12) 1,000 MCG TABLET GTUBE SCH (13:34)
[2020-10-02] MEDS: Valproic Acid Oral Soln 250 MG/5 ML UDC GTUBE SCH ×3 (13:34→20:19)
[2020-10-02] MEDS: QUEtiapine Fumarate 100 MG TABLET GTUBE SCH ×2 (13:34→20:21)
[2020-10-02] MEDS: Aspirin 81 MG TAB.CHEW GTUBE SCH (13:34)
[2020-10-02] MEDS: Metoprolol 100 MG TABLET GTUBE SCH ×2 (13:34→20:20)
[2020-10-02] MEDS: Folic Acid 1 MG TABLET GTUBE SCH (13:38)
[2020-10-02] MEDS: Insulin DETEMIR 100 UNIT/ML X5UNITS SUBQ SCH (13:38)
[2020-10-02] MEDS: *HR* Heparin 5,000 UNIT/ML VIAL SQ SCH ×2 (13:39→16:58)
[2020-10-02] MEDS: Ferrous Sulfate Oral Soln 300 MG/5 ML UDC GTUBE SCH ×2 (13:39→20:19)
[2020-10-02] MEDS: Pyridoxine (B-6) 50 MG TABLET GTUBE SCH (13:40)
[2020-10-03] MEDS: *HR* Heparin 5,000 UNIT/ML VIAL SQ SCH ×4 (01:00→23:16)
[2020-10-03] MEDS: *HR* LORazepam 0.5 MG TABLET PO SCH ×4 (01:01→23:14)
[2020-10-03] MEDS: Insulin LISPRO 300 UNITS/3 ML VIAL SUBQ SCH ×4 (01:01→16:55)
[2020-10-03] MEDS: Piperacillin/Tazobactam 3.375 GM in 0.9 % Sodium Chloride Mini Bag 100 ML IVPB SCH ×2 (05:45→16:54)
[2020-10-03 06:58] LABS: Mean Corpuscular HGB Conc 30.4 g/dL (31.6-35.5); Mean Corpuscular Hemoglobin 29.4 pg (28.0-33.3); Mean Corpuscular Volume 96.6 fL (83.0-100.0); Mean Platelet Volume 9.8 fL (9.4-12.4); Platelet Count 283 K/mcL (140-400); Red Blood Count 2.38 M/mcL (3.82-4.97); Red Cell Distribution Width 18.2 % (11.5-14.5); White Blood Count 10.5 K/mcL (4.3-11.1)
[2020-10-03 07:20] LABS: Calcium 8.3 mg/dL (8.6-10.3); Potassium 3.6 mEq/L (3.5-5.1)
[2020-10-03] MEDS: Ipratropium/Albuterol Neb 3 ML IH SCH ×2 (07:38→21:36)
[2020-10-03] MEDS: QUEtiapine Fumarate 100 MG TABLET GTUBE SCH ×2 (08:48→20:52)
[2020-10-03] MEDS: Folic Acid 1 MG TABLET GTUBE SCH (08:48)
[2020-10-03] MEDS: Ferrous Sulfate Oral Soln 300 MG/5 ML UDC GTUBE SCH ×2 (08:48→20:52)
[2020-10-03] MEDS: Cyanocobalamin (B-12) 1,000 MCG TABLET GTUBE SCH (08:48)
[2020-10-03] MEDS: Metoprolol 100 MG TABLET GTUBE SCH ×2 (08:48→20:52)
[2020-10-03] MEDS: Aspirin 81 MG TAB.CHEW GTUBE SCH (08:49)
[2020-10-03] MEDS: Pyridoxine (B-6) 50 MG TABLET GTUBE SCH (08:49)
[2020-10-03] MEDS: Valproic Acid Oral Soln 250 MG/5 ML UDC GTUBE SCH ×3 (08:51→20:52)
[2020-10-03] MEDS: Insulin DETEMIR 100 UNIT/ML X5UNITS SUBQ SCH (08:52)
[2020-10-03] MEDS ORDERED: 0.9 % Sodium Chloride 500 ML ONE (11:46)
[2020-10-03] MEDS ORDERED: Acetaminophen IV 500 MG/50 ML BAG IVPB ONE (21:27)
[2020-10-04] MEDS: Insulin LISPRO 300 UNITS/3 ML VIAL SUBQ SCH ×4 (02:19→18:00)
[2020-10-04] MEDS: Piperacillin/Tazobactam 3.375 GM in 0.9 % Sodium Chloride Mini Bag 100 ML IVPB SCH (06:45)
[2020-10-04] MEDS: Ipratropium/Albuterol Neb 3 ML IH SCH ×2 (07:33→21:14)
[2020-10-04 08:03] LABS: Basophils # 0.1 K/mcL (0.0-0.2); Basophils % 0.8 %; Eosinophils # 0.2 K/mcL (0.0-0.6); Eosinophils % 1.3 %; Hematocrit 26.4 % (35.3-44.9); Hemoglobin 8.4 g/dL (11.5-15.4); Immature Granulocytes % 2.9 % (0-4); Lymphocytes # 2.3 K/mcL (0.6-4.6); Lymphocytes % 19.3 %; Mean Corpuscular HGB Conc 31.8 g/dL (31.6-35.5); Mean Corpuscular Hemoglobin 29.6 pg (28.0-33.3); Mean Platelet Volume 9.8 fL (9.4-12.4); Monocytes # 1.6 K/mcL (0.0-1.3); Monocytes % 13.6 %; Neutrophils # 7.4 K/mcL (1.6-8.9); Platelet Count 311 K/mcL (140-400); Red Blood Count 2.84 M/mcL (3.82-4.97); Segmented Neutrophils % 62.1 %; White Blood Count 11.9 K/mcL (4.3-11.1)
[2020-10-04 08:27] LABS: Calcium 8.8 mg/dL (8.6-10.3); Potassium 3.8 mEq/L (3.5-5.1)
[2020-10-04] MEDS: Cyanocobalamin (B-12) 1,000 MCG TABLET GTUBE SCH (09:32)
[2020-10-04] MEDS: Pyridoxine (B-6) 50 MG TABLET GTUBE SCH (09:33)
[2020-10-04] MEDS: QUEtiapine Fumarate 100 MG TABLET GTUBE SCH ×2 (09:33→20:34)
[2020-10-04] MEDS: *HR* LORazepam 0.5 MG TABLET GTUBE SCH ×2 (09:33→18:00)
[2020-10-04] MEDS: Aspirin 81 MG TAB.CHEW GTUBE SCH (09:33)
[2020-10-04] MEDS: Insulin DETEMIR 100 UNIT/ML X5UNITS SUBQ SCH (09:33)
[2020-10-04] MEDS: Folic Acid 1 MG TABLET GTUBE SCH (09:33)
[2020-10-04] MEDS: Metoprolol 100 MG TABLET GTUBE SCH ×2 (09:33→20:34)
[2020-10-04] MEDS: Ferrous Sulfate Oral Soln 300 MG/5 ML UDC GTUBE SCH ×2 (09:34→20:34)
[2020-10-04] MEDS: *HR* Heparin 5,000 UNIT/ML VIAL SQ SCH ×2 (09:34→16:14)
[2020-10-04] MEDS: Valproic Acid Oral Soln 250 MG/5 ML UDC GTUBE SCH ×3 (09:34→20:34)
[2020-10-04 12:00] LABS: Adenovirus Not Detected (Not Detect); Bordetella Pertussis Not Detected (Not Detect); Chlamydophila pneumoniae Not Detected (Not Detect); Coronavirus 229E Not Detected (Not Detect); Coronavirus HKU1 Not Detected (Not Detect); Coronavirus NL63 Not Detected (Not Detect); Coronavirus OC43 Not Detected (Not Detect); Human Metapneumovirus Not Detected (Not Detect); Human Rhinovirus/Enterovirus Not Detected (Not Detect); Influenza A Subtype 2009 H1 Not Detected (Not Detect); Influenza B Not Detected (Not Detect); Mycoplasma pneumoniae Not Detected (Not Detect); Parainfluenza Virus 1 Not Detected (Not Detect); Parainfluenza Virus 2 Not Detected (Not Detect); Parainfluenza Virus 3 Not Detected (Not Detect); Parainfluenza Virus 4 Not Detected (Not Detect); Respiratory Syncytial Virus Not Detected (Not Detect); SARS-CoV-2 Not Detected (Not Detect)
[2020-10-04] MEDS: *HR* LORazepam 0.5 MG TABLET PO SCH (14:02)
[2020-10-04] MEDS: Cefdinir 125 MG/5 ML UDC GTUBE SCH (16:14)
[2020-10-05] MEDS: Insulin LISPRO 300 UNITS/3 ML VIAL SUBQ SCH ×4 (00:34→18:14)
[2020-10-05] MEDS: *HR* Heparin 5,000 UNIT/ML VIAL SQ SCH ×3 (03:42→16:53)
[2020-10-05] MEDS: *HR* LORazepam 0.5 MG TABLET GTUBE SCH ×3 (03:42→20:22)
[2020-10-05 04:45] LABS: Basophils # 0.1 K/mcL (0.0-0.2); Basophils % 0.6 %; Eosinophils # 0.1 K/mcL (0.0-0.6); Eosinophils % 1.2 %; Hematocrit 25.3 % (35.3-44.9); Hemoglobin 8.2 g/dL (11.5-15.4); Immature Granulocytes % 3.5 % (0-4); Lymphocytes # 2.1 K/mcL (0.6-4.6); Lymphocytes % 18.9 %; Mean Corpuscular HGB Conc 32.4 g/dL (31.6-35.5); Mean Corpuscular Volume 92.7 fL (83.0-100.0); Mean Platelet Volume 9.7 fL (9.4-12.4); Monocytes # 1.5 K/mcL (0.0-1.3); Monocytes % 13.7 %; Platelet Count 298 K/mcL (140-400); Red Blood Count 2.73 M/mcL (3.82-4.97); Red Cell Distribution Width 17.6 % (11.5-14.5); Segmented Neutrophils % 62.1 %; White Blood Count 11.2 K/mcL (4.3-11.1)
[2020-10-05 05:01] LABS: Calcium 8.8 mg/dL (8.6-10.3); Potassium 4.1 mEq/L (3.5-5.1)
[2020-10-05] MEDS: Ipratropium/Albuterol Neb 3 ML IH SCH ×2 (07:57→20:07)
[2020-10-05] MEDS: Folic Acid 1 MG TABLET GTUBE SCH (08:02)
[2020-10-05] MEDS: Pyridoxine (B-6) 50 MG TABLET GTUBE SCH (08:02)
[2020-10-05] MEDS: Valproic Acid Oral Soln 250 MG/5 ML UDC GTUBE SCH ×3 (08:02→20:22)
[2020-10-05] MEDS: Aspirin 81 MG TAB.CHEW GTUBE SCH (08:02)
[2020-10-05] MEDS: Ferrous Sulfate Oral Soln 300 MG/5 ML UDC GTUBE SCH ×2 (08:02→20:22)
[2020-10-05] MEDS: QUEtiapine Fumarate 100 MG TABLET GTUBE SCH ×2 (08:02→20:22)
[2020-10-05] MEDS: Cyanocobalamin (B-12) 1,000 MCG TABLET GTUBE SCH (08:02)
[2020-10-05] MEDS: Metoprolol 100 MG TABLET GTUBE SCH ×2 (08:03→20:22)
[2020-10-05] MEDS: Insulin DETEMIR 100 UNIT/ML X5UNITS SUBQ SCH (08:06)
[2020-10-05] MEDS: Cefdinir 125 MG/5 ML UDC GTUBE SCH (16:53)
[2020-10-06] MEDS: *HR* Heparin 5,000 UNIT/ML VIAL SQ SCH ×3 (00:04→15:54)
[2020-10-06] MEDS: Insulin LISPRO 300 UNITS/3 ML VIAL SUBQ SCH ×4 (00:09→18:29)
[2020-10-06] MEDS: *HR* LORazepam 0.5 MG TABLET GTUBE SCH ×3 (02:07→20:02)
[2020-10-06] MEDS ORDERED: 0.9 % Sodium Chloride 250 ML IVC PRN (06:53)
[2020-10-06] MEDS: Ipratropium/Albuterol Neb 3 ML IH SCH ×2 (07:13→22:04)
[2020-10-06] MEDS ORDERED: 0.9 % Sodium Chloride 2,000 ML ONE (07:29)
[2020-10-06] MEDS: Pyridoxine (B-6) 50 MG TABLET GTUBE SCH (07:36)
[2020-10-06] MEDS: Folic Acid 1 MG TABLET GTUBE SCH (07:37)
[2020-10-06] MEDS: QUEtiapine Fumarate 100 MG TABLET GTUBE SCH ×2 (07:37→20:03)
[2020-10-06] MEDS: Aspirin 81 MG TAB.CHEW GTUBE SCH (07:37)
[2020-10-06] MEDS: Valproic Acid Oral Soln 250 MG/5 ML UDC GTUBE SCH ×3 (07:38→20:02)
[2020-10-06] MEDS: Ferrous Sulfate Oral Soln 300 MG/5 ML UDC GTUBE SCH ×2 (07:38→20:02)
[2020-10-06] MEDS: Cyanocobalamin (B-12) 1,000 MCG TABLET GTUBE SCH (07:38)
[2020-10-06] MEDS: Insulin DETEMIR 100 UNIT/ML X5UNITS SUBQ SCH (07:39)
[2020-10-06 08:07] LABS: Basophils # 0.1 K/mcL (0.0-0.2); Basophils % 0.7 %; Eosinophils # 0.2 K/mcL (0.0-0.6); Eosinophils % 1.7 %; Hematocrit 26.2 % (35.3-44.9); Hemoglobin 8.2 g/dL (11.5-15.4); Immature Granulocytes % 3.7 % (0-4); Lymphocytes # 1.9 K/mcL (0.6-4.6); Lymphocytes % 17.5 %; Mean Corpuscular HGB Conc 31.3 g/dL (31.6-35.5); Mean Corpuscular Volume 92.6 fL (83.0-100.0); Mean Platelet Volume 9.6 fL (9.4-12.4); Monocytes # 1.4 K/mcL (0.0-1.3); Monocytes % 13.2 %; Neutrophils # 6.9 K/mcL (1.6-8.9); Platelet Count 329 K/mcL (140-400); Red Blood Count 2.83 M/mcL (3.82-4.97); Segmented Neutrophils % 63.2 %; White Blood Count 10.9 K/mcL (4.3-11.1)
[2020-10-06 08:28] LABS: Calcium 9.2 mg/dL (8.6-10.3); Potassium 3.7 mEq/L (3.5-5.1)
[2020-10-06] MEDS ORDERED: *HR* Heparin 10,000 UNIT/10 ML VIAL ONE (11:35)
[2020-10-06] MEDS: Metoprolol 100 MG TABLET GTUBE SCH ×2 (13:05→20:03)
[2020-10-06] MEDS: Cefdinir 125 MG/5 ML UDC GTUBE SCH (15:54)
[2020-10-06 19:02] LABS: Hematocrit 26.4 % (35.3-44.9); Hemoglobin 8.2 g/dL (11.5-15.4)
[2020-10-07] MEDS: Insulin LISPRO 300 UNITS/3 ML VIAL SUBQ SCH ×5 (00:21→23:44)
[2020-10-07] MEDS: *HR* LORazepam 0.5 MG TABLET GTUBE SCH ×3 (03:10→19:52)
[2020-10-07 04:28] LABS: Basophils # 0.1 K/mcL (0.0-0.2); Basophils % 0.5 %; Eosinophils # 0.1 K/mcL (0.0-0.6); Eosinophils % 0.5 %; Hematocrit 26.6 % (35.3-44.9); Hemoglobin 8.2 g/dL (11.5-15.4); Lymphocytes # 1.8 K/mcL (0.6-4.6); Lymphocytes % 14.5 %; Mean Corpuscular HGB Conc 30.8 g/dL (31.6-35.5); Mean Corpuscular Hemoglobin 29.3 pg (28.0-33.3); Mean Platelet Volume 9.4 fL (9.4-12.4); Monocytes # 1.6 K/mcL (0.0-1.3); Monocytes % 12.2 %; Platelet Count 325 K/mcL (140-400); Red Cell Distribution Width 17.2 % (11.5-14.5); Segmented Neutrophils % 70.3 %; White Blood Count 12.7 K/mcL (4.3-11.1)
[2020-10-07 04:34] LABS: Calcium 8.7 mg/dL (8.6-10.3); Potassium 3.4 mEq/L (3.5-5.1)
[2020-10-07] MEDS: Ipratropium/Albuterol Neb 3 ML IH SCH ×2 (07:32→22:05)
[2020-10-07] MEDS: Pyridoxine (B-6) 50 MG TABLET GTUBE SCH (09:01)
[2020-10-07] MEDS: Metoprolol 100 MG TABLET GTUBE SCH ×2 (09:01→19:53)
[2020-10-07] MEDS: Insulin DETEMIR 100 UNIT/ML X5UNITS SUBQ SCH (09:01)
[2020-10-07] MEDS: Cyanocobalamin (B-12) 1,000 MCG TABLET GTUBE SCH (09:02)
[2020-10-07] MEDS: Folic Acid 1 MG TABLET GTUBE SCH (09:02)
[2020-10-07] MEDS: Aspirin 81 MG TAB.CHEW GTUBE SCH (09:02)
[2020-10-07] MEDS: QUEtiapine Fumarate 100 MG TABLET GTUBE SCH ×2 (09:02→19:53)
[2020-10-07] MEDS: Ferrous Sulfate Oral Soln 300 MG/5 ML UDC GTUBE SCH ×2 (09:03→19:52)
[2020-10-07] MEDS: Valproic Acid Oral Soln 250 MG/5 ML UDC GTUBE SCH ×3 (09:03→19:52)
[2020-10-07] MEDS ORDERED: Cefepime HCl 1,000 MG in Water for inj. (sterile) 10 ML IVP SCH (13:00)
[2020-10-07] MEDS: Cefepime HCl 1,000 MG in Water for inj. (sterile) 10 ML IVP SCH (13:08)
[2020-10-07] MEDS: *HR* Heparin 5,000 UNIT/ML VIAL SQ SCH (17:23)
[2020-10-08] MEDS: *HR* LORazepam 0.5 MG TABLET GTUBE SCH ×3 (02:44→21:31)
[2020-10-08 06:00] LABS: Basophils # 0.1 K/mcL (0.0-0.2); Basophils % 0.4 %; Eosinophils # 0.2 K/mcL (0.0-0.6); Eosinophils % 1.2 %; Hematocrit 27.2 % (35.3-44.9); Hemoglobin 8.5 g/dL (11.5-15.4); Immature Granulocytes % 1.6 % (0-4); Lymphocytes # 1.7 K/mcL (0.6-4.6); Mean Corpuscular HGB Conc 31.3 g/dL (31.6-35.5); Mean Corpuscular Hemoglobin 29.5 pg (28.0-33.3); Mean Corpuscular Volume 94.4 fL (83.0-100.0); Mean Platelet Volume 9.3 fL (9.4-12.4); Monocytes # 1.2 K/mcL (0.0-1.3); Monocytes % 9.5 %; Neutrophils # 9.6 K/mcL (1.6-8.9); Platelet Count 321 K/mcL (140-400); Red Blood Count 2.88 M/mcL (3.82-4.97); Red Cell Distribution Width 16.9 % (11.5-14.5); Segmented Neutrophils % 74.3 %
[2020-10-08] MEDS: Insulin LISPRO 300 UNITS/3 ML VIAL SUBQ SCH ×3 (06:17→19:17)
[2020-10-08] MEDS: *HR* Heparin 5,000 UNIT/ML VIAL SQ SCH ×2 (06:19→16:34)
[2020-10-08 06:23] LABS: Calcium 9.3 mg/dL (8.6-10.3); Potassium 3.6 mEq/L (3.5-5.1)
[2020-10-08] MEDS: Valproic Acid Oral Soln 250 MG/5 ML UDC GTUBE SCH ×3 (07:54→21:31)
[2020-10-08] MEDS: Ferrous Sulfate Oral Soln 300 MG/5 ML UDC GTUBE SCH ×2 (07:54→21:30)
[2020-10-08] MEDS: Pyridoxine (B-6) 50 MG TABLET GTUBE SCH (07:55)
[2020-10-08] MEDS: Aspirin 81 MG TAB.CHEW GTUBE SCH (07:55)
[2020-10-08] MEDS: Insulin DETEMIR 100 UNIT/ML X5UNITS SUBQ SCH (07:55)
[2020-10-08] MEDS: QUEtiapine Fumarate 100 MG TABLET GTUBE SCH ×2 (07:55→21:31)
[2020-10-08] MEDS: Cyanocobalamin (B-12) 1,000 MCG TABLET GTUBE SCH (07:55)
[2020-10-08] MEDS: Folic Acid 1 MG TABLET GTUBE SCH (07:55)
[2020-10-08] MEDS: Metoprolol 100 MG TABLET GTUBE SCH ×2 (07:55→21:31)
[2020-10-08] MEDS: Ipratropium/Albuterol Neb 3 ML IH SCH ×2 (10:50→20:11)
[2020-10-08] MEDS: Cefepime HCl 1,000 MG in Water for inj. (sterile) 10 ML IVP SCH (12:01)
[2020-10-09] MEDS: Insulin LISPRO 300 UNITS/3 ML VIAL SUBQ SCH ×4 (00:49→17:59)
[2020-10-09 03:02] LABS: Basophils # 0.1 K/mcL (0.0-0.2); Basophils % 0.4 %; Eosinophils # 0.2 K/mcL (0.0-0.6); Eosinophils % 1.7 %; Hematocrit 24.1 % (35.3-44.9); Hemoglobin 7.8 g/dL (11.5-15.4); Immature Granulocytes % 1.2 % (0-4); Lymphocytes # 1.8 K/mcL (0.6-4.6); Lymphocytes % 15.6 %; Mean Corpuscular HGB Conc 32.4 g/dL (31.6-35.5); Mean Corpuscular Hemoglobin 30.4 pg (28.0-33.3); Mean Corpuscular Volume 93.8 fL (83.0-100.0); Mean Platelet Volume 9.5 fL (9.4-12.4); Monocytes # 1.2 K/mcL (0.0-1.3); Monocytes % 10.3 %; Neutrophils # 8.1 K/mcL (1.6-8.9); Platelet Count 302 K/mcL (140-400); Red Blood Count 2.57 M/mcL (3.82-4.97); Segmented Neutrophils % 70.8 %; White Blood Count 11.5 K/mcL (4.3-11.1)
[2020-10-09 03:25] LABS: Calcium 9.2 mg/dL (8.6-10.3); Potassium 3.4 mEq/L (3.5-5.1)
[2020-10-09] MEDS: *HR* LORazepam 0.5 MG TABLET GTUBE SCH ×3 (03:27→19:49)
[2020-10-09] MEDS: *HR* Heparin 5,000 UNIT/ML VIAL SQ SCH ×2 (05:17→17:05)
[2020-10-09] MEDS: Ipratropium/Albuterol Neb 3 ML IH SCH ×2 (07:45→21:26)
[2020-10-09] MEDS ORDERED: 0.9 % Sodium Chloride 1,000 ML ONE (07:49)
[2020-10-09] MEDS ORDERED: *HR* Heparin 10,000 UNIT/10 ML VIAL IV PRN ×2 (07:59)
[2020-10-09] MEDS ORDERED: 0.9 % Sodium Chloride 250 ML IVC PRN (07:59)
[2020-10-09] MEDS ORDERED: 0.9 % Sodium Chloride 1,000 ML PRIME SCH (08:00)
[2020-10-09] MEDS: Ferrous Sulfate Oral Soln 300 MG/5 ML UDC GTUBE SCH ×2 (08:39→19:49)
[2020-10-09] MEDS: Insulin DETEMIR 100 UNIT/ML X5UNITS SUBQ SCH (08:39)
[2020-10-09] MEDS: Aspirin 81 MG TAB.CHEW GTUBE SCH (08:40)
[2020-10-09] MEDS: QUEtiapine Fumarate 100 MG TABLET GTUBE SCH ×2 (08:40→19:49)
[2020-10-09] MEDS: Pyridoxine (B-6) 50 MG TABLET GTUBE SCH (08:40)
[2020-10-09] MEDS: Folic Acid 1 MG TABLET GTUBE SCH (08:40)
[2020-10-09] MEDS: Valproic Acid Oral Soln 250 MG/5 ML UDC GTUBE SCH ×3 (08:40→19:49)
[2020-10-09] MEDS: Cyanocobalamin (B-12) 1,000 MCG TABLET GTUBE SCH (08:40)
[2020-10-09] MEDS ORDERED: Lidocaine Viscous Oral Soln 15 ML SOLUTION ONE (13:48)
[2020-10-09] MEDS ORDERED: *HR* Midazolam HCl 2 MG/2 ML VIAL IVP ONE ×2 (13:56→14:23)
[2020-10-09] MEDS ORDERED: *HR* FentaNYL (PF) 100 MCG/2 ML VIAL IVP ONE (13:57)
[2020-10-09] MEDS: Metoprolol 100 MG TABLET GTUBE SCH ×2 (14:42→19:49)
[2020-10-09 14:49] LABS: % Iron Saturation 19 % (15-50); Iron 33 mcg/dL (50-170); Transferrin 123 mg/dL (203-362)
[2020-10-09 15:28] LABS: Vitamin B12 > 1500 pg/mL (250-1100)
[2020-10-09] MEDS: Cefepime HCl 1,000 MG in Water for inj. (sterile) 10 ML IVP SCH (16:45)
[2020-10-09 19:42] LABS: Basophils % 0.4 %; Eosinophils # 0.2 K/mcL (0.0-0.6); Eosinophils % 1.4 %; Hematocrit 26.6 % (35.3-44.9); Hemoglobin 8.2 g/dL (11.5-15.4); Immature Granulocytes % 1.2 % (0-4); Lymphocytes # 1.7 K/mcL (0.6-4.6); Mean Corpuscular HGB Conc 30.8 g/dL (31.6-35.5); Mean Corpuscular Hemoglobin 29.2 pg (28.0-33.3); Mean Corpuscular Volume 94.7 fL (83.0-100.0); Mean Platelet Volume 9.2 fL (9.4-12.4); Monocytes % 9.5 %; Neutrophils # 7.6 K/mcL (1.6-8.9); Platelet Count 292 K/mcL (140-400); Red Blood Count 2.81 M/mcL (3.82-4.97); Red Cell Distribution Width 16.7 % (11.5-14.5); Segmented Neutrophils % 71.5 %; White Blood Count 10.6 K/mcL (4.3-11.1)
[2020-10-10] MEDS: Insulin LISPRO 300 UNITS/3 ML VIAL SUBQ SCH ×4 (00:15→17:23)
[2020-10-10] MEDS: *HR* LORazepam 0.5 MG TABLET GTUBE SCH ×3 (02:31→19:43)
[2020-10-10 02:38] LABS: Basophils # 0.1 K/mcL (0.0-0.2); Basophils % 0.5 %; Eosinophils # 0.2 K/mcL (0.0-0.6); Eosinophils % 1.6 %; Hematocrit 26.7 % (35.3-44.9); Hemoglobin 8.4 g/dL (11.5-15.4); Lymphocytes # 1.5 K/mcL (0.6-4.6); Lymphocytes % 12.7 %; Mean Corpuscular HGB Conc 31.5 g/dL (31.6-35.5); Mean Corpuscular Hemoglobin 29.9 pg (28.0-33.3); Mean Platelet Volume 9.6 fL (9.4-12.4); Monocytes # 1.1 K/mcL (0.0-1.3); Monocytes % 9.4 %; Platelet Count 308 K/mcL (140-400); Red Blood Count 2.81 M/mcL (3.82-4.97); Segmented Neutrophils % 74.8 %
[2020-10-10 02:59] LABS: Calcium 8.9 mg/dL (8.6-10.3); Potassium 3.6 mEq/L (3.5-5.1)
[2020-10-10] MEDS: *HR* Heparin 5,000 UNIT/ML VIAL SQ SCH ×2 (05:27→17:23)
[2020-10-10] MEDS: Ipratropium/Albuterol Neb 3 ML IH SCH ×2 (07:16→22:14)
[2020-10-10 08:47] LABS: Folate > 22.3 ng/mL (3.0-16.0)
[2020-10-10] MEDS: Aspirin 81 MG TAB.CHEW GTUBE SCH (08:58)
[2020-10-10] MEDS: Metoprolol 100 MG TABLET GTUBE SCH ×2 (08:58→19:43)
[2020-10-10] MEDS: Pyridoxine (B-6) 50 MG TABLET GTUBE SCH (08:59)
[2020-10-10] MEDS: Cyanocobalamin (B-12) 1,000 MCG TABLET GTUBE SCH (09:00)
[2020-10-10] MEDS: QUEtiapine Fumarate 100 MG TABLET GTUBE SCH ×2 (09:00→19:43)
[2020-10-10] MEDS: Ferrous Sulfate Oral Soln 300 MG/5 ML UDC GTUBE SCH ×2 (09:01→19:43)
[2020-10-10] MEDS: Valproic Acid Oral Soln 250 MG/5 ML UDC GTUBE SCH ×3 (09:01→19:43)
[2020-10-10] MEDS: Folic Acid 1 MG TABLET GTUBE SCH (09:02)
[2020-10-10] MEDS: Insulin DETEMIR 100 UNIT/ML X5UNITS SUBQ SCH (09:39)
[2020-10-10] MEDS: Cefepime HCl 1,000 MG in Water for inj. (sterile) 10 ML IVP SCH (13:16)
[2020-10-11 02:22] LABS: Basophils % 0.4 %; Eosinophils # 0.3 K/mcL (0.0-0.6); Eosinophils % 2.7 %; Hematocrit 24.4 % (35.3-44.9); Hemoglobin 7.7 g/dL (11.5-15.4); Immature Granulocytes % 1.3 % (0-4); Lymphocytes # 1.8 K/mcL (0.6-4.6); Lymphocytes % 17.8 %; Mean Corpuscular HGB Conc 31.6 g/dL (31.6-35.5); Mean Corpuscular Hemoglobin 29.8 pg (28.0-33.3); Mean Corpuscular Volume 94.6 fL (83.0-100.0); Mean Platelet Volume 9.5 fL (9.4-12.4); Monocytes % 9.9 %; Neutrophils # 6.8 K/mcL (1.6-8.9); Platelet Count 311 K/mcL (140-400); Red Blood Count 2.58 M/mcL (3.82-4.97); Red Cell Distribution Width 16.6 % (11.5-14.5); Segmented Neutrophils % 67.9 %
[2020-10-11 02:44] LABS: Calcium 9.1 mg/dL (8.6-10.3); Potassium 3.5 mEq/L (3.5-5.1)
[2020-10-11] MEDS: *HR* LORazepam 0.5 MG TABLET GTUBE SCH ×3 (02:49→19:54)
[2020-10-11] MEDS: Insulin LISPRO 300 UNITS/3 ML VIAL SUBQ SCH ×4 (05:07→17:33)
[2020-10-11] MEDS: *HR* Heparin 5,000 UNIT/ML VIAL SQ SCH ×2 (05:39→18:05)
[2020-10-11] MEDS: Ipratropium/Albuterol Neb 3 ML IH SCH ×2 (07:49→19:41)
[2020-10-11] MEDS: Ferrous Sulfate Oral Soln 300 MG/5 ML UDC GTUBE SCH ×2 (08:02→19:54)
[2020-10-11] MEDS: Aspirin 81 MG TAB.CHEW GTUBE SCH (08:02)
[2020-10-11] MEDS: Valproic Acid Oral Soln 250 MG/5 ML UDC GTUBE SCH ×3 (08:02→19:54)
[2020-10-11] MEDS: Pyridoxine (B-6) 50 MG TABLET GTUBE SCH (08:02)
[2020-10-11] MEDS: Metoprolol 100 MG TABLET GTUBE SCH ×3 (08:03→19:54)
[2020-10-11] MEDS: Cyanocobalamin (B-12) 1,000 MCG TABLET GTUBE SCH (08:03)
[2020-10-11] MEDS: Folic Acid 1 MG TABLET GTUBE SCH (08:03)
[2020-10-11] MEDS: QUEtiapine Fumarate 100 MG TABLET GTUBE SCH ×2 (08:03→19:54)
[2020-10-11] MEDS: Insulin DETEMIR 100 UNIT/ML X5UNITS SUBQ SCH (08:37)
[2020-10-11] MEDS: Cefepime HCl 1,000 MG in Water for inj. (sterile) 10 ML IVP SCH (12:23)
[2020-10-11 23:43] LABS: Heparin anti-factor XA UFH < 0.04 IU/mL (0.30-0.70)
[2020-10-12 00:05] LABS: INR 1.3; Prothrombin Time 14.6 Seconds (9.4-12.1)
[2020-10-12 00:07] LABS: Activated Partial Thrombo Time 34.8 Seconds (26.0-36.0)
[2020-10-12] MEDS: Insulin LISPRO 300 UNITS/3 ML VIAL SUBQ SCH ×3 (01:04→11:49)
[2020-10-12] MEDS: *HR* LORazepam 0.5 MG TABLET GTUBE SCH ×2 (03:25→10:22)
[2020-10-12] MEDS: *HR* Heparin 5,000 UNIT/ML VIAL SQ SCH (04:54)
[2020-10-12 05:12] LABS: Basophils # 0.1 K/mcL (0.0-0.2); Basophils % 0.5 %; Eosinophils # 0.2 K/mcL (0.0-0.6); Eosinophils % 2.4 %; Hematocrit 25.1 % (35.3-44.9); Hemoglobin 8.1 g/dL (11.5-15.4); Immature Granulocytes % 0.8 % (0-4); Lymphocytes % 20.7 %; Mean Corpuscular HGB Conc 32.3 g/dL (31.6-35.5); Mean Corpuscular Hemoglobin 30.2 pg (28.0-33.3); Mean Corpuscular Volume 93.7 fL (83.0-100.0); Mean Platelet Volume 9.8 fL (9.4-12.4); Monocytes # 0.8 K/mcL (0.0-1.3); Monocytes % 8.2 %; Neutrophils # 6.4 K/mcL (1.6-8.9); Platelet Count 338 K/mcL (140-400); Red Blood Count 2.68 M/mcL (3.82-4.97); Red Cell Distribution Width 16.5 % (11.5-14.5); Segmented Neutrophils % 67.4 %; White Blood Count 9.6 K/mcL (4.3-11.1)
[2020-10-12 05:27] LABS: Calcium 9.5 mg/dL (8.6-10.3); Potassium 3.4 mEq/L (3.5-5.1)
[2020-10-12] MEDS: Ipratropium/Albuterol Neb 3 ML IH SCH (07:37)
[2020-10-12] MEDS: Metoprolol 100 MG TABLET GTUBE SCH (08:16)
[2020-10-12] MEDS: Pyridoxine (B-6) 50 MG TABLET GTUBE SCH (08:16)
[2020-10-12] MEDS: Aspirin 81 MG TAB.CHEW GTUBE SCH (08:16)
[2020-10-12] MEDS: Ferrous Sulfate Oral Soln 300 MG/5 ML UDC GTUBE SCH (08:17)
[2020-10-12] MEDS: Folic Acid 1 MG TABLET GTUBE SCH (08:17)
[2020-10-12] MEDS: Valproic Acid Oral Soln 250 MG/5 ML UDC GTUBE SCH (08:17)
[2020-10-12] MEDS: QUEtiapine Fumarate 100 MG TABLET GTUBE SCH (08:17)
[2020-10-12] MEDS: Cyanocobalamin (B-12) 1,000 MCG TABLET GTUBE SCH (08:17)
[2020-10-12] MEDS ORDERED: Potassium Chloride Elixir 20 MEQ/15 ML UDC GTUBE ONE (08:41)
[2020-10-12] MEDS ORDERED: Silver Nitrate Applicator 1 STICK..EA. TP ONE (08:49)
[2020-10-12] MEDS: Insulin DETEMIR 100 UNIT/ML X5UNITS SUBQ SCH (09:23)
[2020-10-12 11:49] VITALS: BP 125/55
[2020-10-12] MEDS: Cefepime HCl 1,000 MG in Water for inj. (sterile) 10 ML IVP SCH (11:49)
== END 2020-10-12 15:15 | DRG 720 ==
LOC: ICNU → SUATTDRO 11:51 → 2NNU 09-30 15:47
PROVIDERS: ADMIT Internal Medicine; ATTEND Student in an Organized Health Care Education/Training Program

== ENCOUNTER 2021-09-04 21:42 | Inpatient (IN) ==
[2021-09-05] MEDS ORDERED: Acetaminophen 325 MG TABLET PO PRN (01:02)
[2021-09-05] MEDS ORDERED: Ondansetron 4 MG/2 ML VIAL IVP PRN (01:02)
[2021-09-05] MEDS ORDERED: Naloxone 0.4 MG/ML INJ IVP PRN (01:02)
[2021-09-05] MEDS ORDERED: 0.9 % Sodium Chloride 1,000 ML IVC SCH (01:15)
[2021-09-05] MEDS ORDERED: Dextrose Gel 15 GM/37.5 ML TUBE PO PRN ×2 (03:20)
[2021-09-05] MEDS ORDERED: D5% in Water 1,000 ML IVC PRN (03:20)
[2021-09-05] MEDS ORDERED: Vancomycin 1 EACH in 0.9 % Sodium Chloride 250 ML IVPB PRN (04:00)
[2021-09-05 05:33] LABS: Basophils % 0.3 %; Eosinophils % 0.2 %; Hematocrit 37.2 % (35.3-44.9); Hemoglobin 11.6 g/dL (11.5-15.4); Immature Granulocytes % 0.4 % (0-4); Lymphocytes # 1.8 K/mcL (0.6-4.6); Lymphocytes % 14.5 %; Mean Corpuscular HGB Conc 31.2 g/dL (31.6-35.5); Mean Corpuscular Hemoglobin 26.7 pg (28.0-33.3); Mean Corpuscular Volume 85.7 fL (83.0-100.0); Mean Platelet Volume 8.9 fL (9.4-12.4); Monocytes # 0.7 K/mcL (0.0-1.3); Monocytes % 5.6 %; Neutrophils # 9.6 K/mcL (1.6-8.9); Platelet Count 310 K/mcL (140-400); Red Blood Count 4.34 M/mcL (3.82-4.97); Red Cell Distribution Width 16.6 % (11.5-14.5); White Blood Count 12.2 K/mcL (4.3-11.1)
[2021-09-05 05:38] LABS: INR 1.5; Prothrombin Time 16.4 Seconds (9.4-12.1)
[2021-09-05 05:41] LABS: Activated Partial Thrombo Time 51.6 Seconds (26.0-36.0)
[2021-09-05 05:53] LABS: Albumin 2.5 g/dL (3.5-5.7); Albumin/Globulin Ratio 0.5 (1.1-2.2); Bilirubin,Total 0.4 mg/dL (0.3-1.0); Potassium 3.5 mEq/L (3.5-5.1); Total Protein 7.5 g/dL (6.4-8.9); Troponin I 0.03 ng/mL (< 0.04)
[2021-09-05] MEDS: Piperacillin/Tazobactam 3.375 GM in 0.9 % Sodium Chloride Mini Bag 100 ML IVPB SCH ×2 (06:46→17:44)
[2021-09-05] MEDS: Insulin LISPRO 300 UNITS/3 ML VIAL SUBQ SCH ×3 (06:47→17:44)
[2021-09-05] MEDS: *HR* Heparin 5,000 UNIT/ML VIAL SQ SCH ×3 (06:47→20:25)
[2021-09-05] MEDS ORDERED: Piperacillin/Tazobactam 3.375 GM in 0.9 % Sodium Chloride Mini Bag 100 ML IVPB SCH (08:00)
[2021-09-05 09:34] LABS: Hepatitis B Surface Antibody < 3.10 mIU/mL
[2021-09-05 09:46] LABS: Hepatitis B Surface Antigen Nonreactive (Nonreactive)
[2021-09-05] MEDS: Aspirin 81 MG TAB.CHEW GTUBE SCH (17:44)
[2021-09-06 01:27] LABS: Hematocrit 32.8 % (35.3-44.9); Hemoglobin 10.2 g/dL (11.5-15.4); Mean Corpuscular HGB Conc 31.1 g/dL (31.6-35.5); Mean Corpuscular Hemoglobin 26.5 pg (28.0-33.3); Mean Corpuscular Volume 85.2 fL (83.0-100.0); Platelet Count 282 K/mcL (140-400); Red Blood Count 3.85 M/mcL (3.82-4.97); Red Cell Distribution Width 16.9 % (11.5-14.5); White Blood Count 12.2 K/mcL (4.3-11.1)
[2021-09-06 01:53] LABS: Calcium 9.8 mg/dL (8.6-10.3); Potassium 3.1 mEq/L (3.5-5.1)
[2021-09-06] MEDS: Insulin LISPRO 300 UNITS/3 ML VIAL SUBQ SCH ×4 (02:05→17:43)
[2021-09-06 05:34] LABS: Potassium 3.1 mEq/L (3.5-5.1)
[2021-09-06] MEDS: *HR* Heparin 5,000 UNIT/ML VIAL SQ SCH ×3 (05:46→20:39)
[2021-09-06] MEDS: Piperacillin/Tazobactam 3.375 GM in 0.9 % Sodium Chloride Mini Bag 100 ML IVPB SCH ×2 (05:46→18:01)
[2021-09-06] MEDS ORDERED: diazePAM 5 MG TABLET PO PRN (07:41)
[2021-09-06] MEDS ORDERED: *HR* Heparin 10,000 UNIT/10 ML VIAL IV PRN ×2 (07:53)
[2021-09-06] MEDS ORDERED: Albumin 25% 25gram/100mL 25 GM/100 ML IV.SOLN IVPB ONE (07:53)
[2021-09-06] MEDS ORDERED: 0.9 % Sodium Chloride 250 ML IVC PRN (07:53)
[2021-09-06] MEDS ORDERED: 0.9 % Sodium Chloride 2,000 ML PRIME SCH (08:00)
[2021-09-06] MEDS: Ferrous Sulfate Oral Soln 300 MG/5 ML UDC GTUBE SCH ×2 (08:38→20:39)
[2021-09-06] MEDS: Multivit/Ca/Min/Fe/FA 1 TAB TABLET GTUBE SCH (08:39)
[2021-09-06] MEDS: Cyanocobalamin (B-12) 1,000 MCG TABLET GTUBE SCH (08:39)
[2021-09-06] MEDS: Metoprolol 100 MG TABLET GTUBE SCH ×2 (08:39→20:40)
[2021-09-06] MEDS: QUEtiapine Fumarate 25 MG TABLET GTUBE SCH ×2 (08:39→20:40)
[2021-09-06] MEDS: Lactobacillus 1 EACH CAP.SPRINK GTUBE SCH (08:39)
[2021-09-06] MEDS: Pyridoxine (B-6) 50 MG TABLET GTUBE SCH (08:39)
[2021-09-06] MEDS: *HR* LORazepam 0.5 MG TABLET GTUBE SCH ×2 (08:40→16:16)
[2021-09-06] MEDS: Aspirin 81 MG TAB.CHEW GTUBE SCH (08:40)
[2021-09-06] MEDS: lisinopriL 20 MG TABLET GTUBE SCH ×2 (08:40→20:40)
[2021-09-06] MEDS: Folic Acid 1 MG TABLET GTUBE SCH (08:40)
[2021-09-06] MEDS: Divalproex Sodium 125 MG Sprinkle Capsule (DR) GTUBE SCH ×2 (09:22→20:40)
[2021-09-06] MEDS ORDERED: Sucralfate 1 GM TABLET PO ONE (09:23)
[2021-09-06 09:38] LABS: Phosphorous 2.2 mg/dL (2.7-4.5)
[2021-09-06] MEDS: hydrALAZINE 10 MG TABLET GTUBE SCH ×2 (14:07→18:01)
[2021-09-06] MEDS: *HR* Dextrose 50 % in Water (Syg) 50 ML SYRINGE IVP PRN (17:41)
[2021-09-07] MEDS: Insulin LISPRO 300 UNITS/3 ML VIAL SUBQ SCH ×7 (00:27→20:24)
[2021-09-07] MEDS: *HR* LORazepam 0.5 MG TABLET GTUBE SCH ×3 (01:25→15:57)
[2021-09-07 01:54] LABS: Hematocrit 32.4 % (35.3-44.9); Hemoglobin 10.2 g/dL (11.5-15.4); Mean Corpuscular HGB Conc 31.5 g/dL (31.6-35.5); Mean Corpuscular Hemoglobin 27.1 pg (28.0-33.3); Mean Corpuscular Volume 85.9 fL (83.0-100.0); Mean Platelet Volume 8.9 fL (9.4-12.4); Platelet Count 266 K/mcL (140-400); Red Blood Count 3.77 M/mcL (3.82-4.97); White Blood Count 9.7 K/mcL (4.3-11.1)
[2021-09-07 01:58] LABS: Calcium 9.5 mg/dL (8.6-10.3); Potassium 3.1 mEq/L (3.5-5.1)
[2021-09-07] MEDS: Piperacillin/Tazobactam 3.375 GM in 0.9 % Sodium Chloride Mini Bag 100 ML IVPB SCH ×2 (05:04→17:43)
[2021-09-07] MEDS: *HR* Heparin 5,000 UNIT/ML VIAL SQ SCH ×3 (05:04→19:31)
[2021-09-07] MEDS: Cyanocobalamin (B-12) 1,000 MCG TABLET GTUBE SCH (08:41)
[2021-09-07] MEDS: Aspirin 81 MG TAB.CHEW GTUBE SCH (08:41)
[2021-09-07] MEDS: lisinopriL 20 MG TABLET GTUBE SCH ×2 (08:41→19:31)
[2021-09-07] MEDS: Folic Acid 1 MG TABLET GTUBE SCH (08:41)
[2021-09-07] MEDS: Metoprolol 100 MG TABLET GTUBE SCH ×2 (08:41→19:31)
[2021-09-07] MEDS: Multivit/Ca/Min/Fe/FA 1 TAB TABLET GTUBE SCH (08:41)
[2021-09-07] MEDS: Pyridoxine (B-6) 50 MG TABLET GTUBE SCH (08:41)
[2021-09-07] MEDS: Lactobacillus 1 EACH CAP.SPRINK GTUBE SCH (08:41)
[2021-09-07] MEDS: hydrALAZINE 10 MG TABLET GTUBE SCH (08:41)
[2021-09-07] MEDS: Ferrous Sulfate Oral Soln 300 MG/5 ML UDC GTUBE SCH ×2 (08:42→19:31)
[2021-09-07] MEDS: QUEtiapine Fumarate 25 MG TABLET GTUBE SCH ×2 (08:42→19:31)
[2021-09-07] MEDS ORDERED: Perflutren Lipid Microsphere 1.3 ML in 0.9 % Sodium Chloride 8.7 ML IVP PRN (08:50)
[2021-09-07 08:55] LABS: Magnesium 1.9 mg/dL (1.6-2.6); Phosphorous < 1.0 mg/dL (2.7-4.5)
[2021-09-07] MEDS ORDERED: Potassium Phosphate 44 MEQ in 0.9 % Sodium Chloride 250 ML IVPB ONE (09:01)
[2021-09-07] MEDS: Divalproex Sodium 125 MG Sprinkle Capsule (DR) GTUBE SCH ×2 (11:49→19:31)
[2021-09-08] MEDS: Insulin LISPRO 300 UNITS/3 ML VIAL SUBQ SCH ×6 (01:08→21:07)
[2021-09-08] MEDS: hydrALAZINE 10 MG TABLET GTUBE SCH ×4 (01:10→17:32)
[2021-09-08] MEDS: *HR* LORazepam 0.5 MG TABLET GTUBE SCH ×3 (01:10→16:26)
[2021-09-08 05:01] LABS: Hematocrit 31.8 % (35.3-44.9); Hemoglobin 9.9 g/dL (11.5-15.4); Mean Corpuscular HGB Conc 31.1 g/dL (31.6-35.5); Mean Corpuscular Hemoglobin 26.9 pg (28.0-33.3); Mean Corpuscular Volume 86.4 fL (83.0-100.0); Mean Platelet Volume 9.2 fL (9.4-12.4); Platelet Count 238 K/mcL (140-400); Red Blood Count 3.68 M/mcL (3.82-4.97); Red Cell Distribution Width 16.9 % (11.5-14.5); White Blood Count 8.7 K/mcL (4.3-11.1)
[2021-09-08 05:10] LABS: Phosphorous 2.3 mg/dL (2.7-4.5)
[2021-09-08 05:13] LABS: Calcium 9.4 mg/dL (8.6-10.3); Potassium 4.6 mEq/L (3.5-5.1)
[2021-09-08] MEDS: *HR* Heparin 5,000 UNIT/ML VIAL SQ SCH ×4 (05:58→19:36)
[2021-09-08] MEDS: Piperacillin/Tazobactam 3.375 GM in 0.9 % Sodium Chloride Mini Bag 100 ML IVPB SCH ×2 (06:04→17:42)
[2021-09-08] MEDS: Ferrous Sulfate Oral Soln 300 MG/5 ML UDC GTUBE SCH ×2 (07:53→19:36)
[2021-09-08] MEDS: Pyridoxine (B-6) 50 MG TABLET GTUBE SCH (07:53)
[2021-09-08] MEDS: Divalproex Sodium 125 MG Sprinkle Capsule (DR) GTUBE SCH ×3 (07:54→20:22)
[2021-09-08] MEDS: Multivit/Ca/Min/Fe/FA 1 TAB TABLET GTUBE SCH (07:54)
[2021-09-08] MEDS: lisinopriL 20 MG TABLET GTUBE SCH ×2 (07:54→19:36)
[2021-09-08] MEDS: Metoprolol 100 MG TABLET GTUBE SCH ×2 (07:54→19:37)
[2021-09-08] MEDS: Lactobacillus 1 EACH CAP.SPRINK GTUBE SCH (07:54)
[2021-09-08] MEDS: Folic Acid 1 MG TABLET GTUBE SCH (07:54)
[2021-09-08] MEDS: QUEtiapine Fumarate 25 MG TABLET GTUBE SCH ×2 (07:54→19:37)
[2021-09-08] MEDS: Aspirin 81 MG TAB.CHEW GTUBE SCH (07:54)
[2021-09-08] MEDS: Cyanocobalamin (B-12) 1,000 MCG TABLET GTUBE SCH (07:55)
[2021-09-08] MEDS ORDERED: *HR* Heparin 10,000 UNIT/10 ML VIAL IV PRN (08:55)
[2021-09-08] MEDS ORDERED: 0.9 % Sodium Chloride 250 ML IVC PRN (08:55)
[2021-09-08] MEDS: Potassium Phosphate 44 MEQ in 0.9 % Sodium Chloride 250 ML IVPB ONE ×2 (14:11→14:13)
[2021-09-09] MEDS: Insulin LISPRO 300 UNITS/3 ML VIAL SUBQ SCH ×6 (00:07→20:13)
[2021-09-09] MEDS: hydrALAZINE 10 MG TABLET GTUBE SCH ×4 (00:07→18:14)
[2021-09-09] MEDS: *HR* LORazepam 0.5 MG TABLET GTUBE SCH ×4 (00:07→23:25)
[2021-09-09 02:42] LABS: Mean Corpuscular HGB Conc 30.3 g/dL (31.6-35.5); Mean Corpuscular Hemoglobin 26.7 pg (28.0-33.3); Mean Corpuscular Volume 88.2 fL (83.0-100.0); Mean Platelet Volume 9.4 fL (9.4-12.4); Platelet Count 224 K/mcL (140-400); Red Blood Count 3.74 M/mcL (3.82-4.97); Red Cell Distribution Width 16.9 % (11.5-14.5)
[2021-09-09 03:01] LABS: Magnesium 1.7 mg/dL (1.6-2.6); Phosphorous 2.6 mg/dL (2.7-4.5); Potassium 4.3 mEq/L (3.5-5.1)
[2021-09-09] MEDS: *HR* Heparin 5,000 UNIT/ML VIAL SQ SCH ×3 (06:03→21:36)
[2021-09-09] MEDS: Piperacillin/Tazobactam 3.375 GM in 0.9 % Sodium Chloride Mini Bag 100 ML IVPB SCH ×2 (06:03→18:14)
[2021-09-09] MEDS: Multivit/Ca/Min/Fe/FA 1 TAB TABLET GTUBE SCH (09:10)
[2021-09-09] MEDS: lisinopriL 20 MG TABLET GTUBE SCH ×2 (09:10→21:37)
[2021-09-09] MEDS: Folic Acid 1 MG TABLET GTUBE SCH (09:10)
[2021-09-09] MEDS: Pyridoxine (B-6) 50 MG TABLET GTUBE SCH (09:10)
[2021-09-09] MEDS: QUEtiapine Fumarate 25 MG TABLET GTUBE SCH ×2 (09:10→23:24)
[2021-09-09] MEDS: Aspirin 81 MG TAB.CHEW GTUBE SCH (09:10)
[2021-09-09] MEDS: Divalproex Sodium 125 MG Sprinkle Capsule (DR) GTUBE SCH ×2 (09:10→21:37)
[2021-09-09] MEDS: Metoprolol 100 MG TABLET GTUBE SCH ×2 (09:10→21:37)
[2021-09-09] MEDS: Lactobacillus 1 EACH CAP.SPRINK GTUBE SCH (09:11)
[2021-09-09] MEDS: Cyanocobalamin (B-12) 1,000 MCG TABLET GTUBE SCH (09:11)
[2021-09-09] MEDS: Ferrous Sulfate Oral Soln 300 MG/5 ML UDC GTUBE SCH ×2 (09:11→21:37)
[2021-09-10] MEDS: Insulin LISPRO 300 UNITS/3 ML VIAL SUBQ SCH ×6 (00:27→20:23)
[2021-09-10 04:41] LABS: Hematocrit 33.2 % (35.3-44.9); Hemoglobin 10.1 g/dL (11.5-15.4); Mean Corpuscular HGB Conc 30.4 g/dL (31.6-35.5); Mean Corpuscular Hemoglobin 26.7 pg (28.0-33.3); Mean Corpuscular Volume 87.8 fL (83.0-100.0); Mean Platelet Volume 9.1 fL (9.4-12.4); Platelet Count 216 K/mcL (140-400); Red Blood Count 3.78 M/mcL (3.82-4.97); Red Cell Distribution Width 16.7 % (11.5-14.5); White Blood Count 8.3 K/mcL (4.3-11.1)
[2021-09-10 04:57] LABS: Magnesium 1.8 mg/dL (1.6-2.6)
[2021-09-10] MEDS: *HR* Heparin 5,000 UNIT/ML VIAL SQ SCH ×3 (06:19→22:24)
[2021-09-10] MEDS: Piperacillin/Tazobactam 3.375 GM in 0.9 % Sodium Chloride Mini Bag 100 ML IVPB SCH ×2 (06:19→17:55)
[2021-09-10] MEDS ORDERED: 0.9 % Sodium Chloride 250 ML IVC PRN (08:43)
[2021-09-10] MEDS ORDERED: *HR* Heparin 10,000 UNIT/10 ML VIAL IV PRN (08:43)
[2021-09-10] MEDS: *HR* LORazepam 0.5 MG TABLET GTUBE SCH ×2 (09:34→17:55)
[2021-09-10] MEDS: Lactobacillus 1 EACH CAP.SPRINK GTUBE SCH (09:35)
[2021-09-10] MEDS: Aspirin 81 MG TAB.CHEW GTUBE SCH (09:35)
[2021-09-10] MEDS: Ferrous Sulfate Oral Soln 300 MG/5 ML UDC GTUBE SCH ×2 (09:35→20:22)
[2021-09-10] MEDS: Divalproex Sodium 125 MG Sprinkle Capsule (DR) GTUBE SCH ×2 (09:35→20:21)
[2021-09-10] MEDS: lisinopriL 20 MG TABLET GTUBE SCH ×2 (09:36→20:22)
[2021-09-10] MEDS: Metoprolol 100 MG TABLET GTUBE SCH ×2 (09:36→20:22)
[2021-09-10] MEDS: Cyanocobalamin (B-12) 1,000 MCG TABLET GTUBE SCH (09:36)
[2021-09-10] MEDS: Multivit/Ca/Min/Fe/FA 1 TAB TABLET GTUBE SCH (09:36)
[2021-09-10] MEDS: Folic Acid 1 MG TABLET GTUBE SCH (09:36)
[2021-09-10] MEDS: Pyridoxine (B-6) 50 MG TABLET GTUBE SCH (09:36)
[2021-09-10] MEDS: hydrALAZINE 10 MG TABLET GTUBE SCH (09:36)
[2021-09-10] MEDS: QUEtiapine Fumarate 25 MG TABLET GTUBE SCH ×2 (09:36→20:22)
[2021-09-10] MEDS ORDERED: E-Z-HD (BARIUM SULF) SUSPENSION PO ONE (13:33)
[2021-09-10] MEDS ORDERED: E-Z-PAQUE (BARIUM SULF) SUSP 1 BOTTLE PO ONE (13:33)
[2021-09-10 22:55] LABS: Calcium 8.8 mg/dL (8.6-10.3); Potassium 5.4 mEq/L (3.5-5.1)
[2021-09-11] MEDS: Insulin LISPRO 300 UNITS/3 ML VIAL SUBQ SCH ×6 (00:22→20:59)
[2021-09-11] MEDS: hydrALAZINE 10 MG TABLET GTUBE SCH ×4 (00:22→18:10)
[2021-09-11] MEDS: *HR* LORazepam 0.5 MG TABLET GTUBE SCH ×3 (00:22→16:00)
[2021-09-11 01:51] LABS: Hematocrit 31.6 % (35.3-44.9); Hemoglobin 9.7 g/dL (11.5-15.4); Mean Corpuscular HGB Conc 30.7 g/dL (31.6-35.5); Mean Corpuscular Hemoglobin 26.9 pg (28.0-33.3); Mean Corpuscular Volume 87.5 fL (83.0-100.0); Mean Platelet Volume 9.7 fL (9.4-12.4); Platelet Count 213 K/mcL (140-400); Red Blood Count 3.61 M/mcL (3.82-4.97); Red Cell Distribution Width 16.6 % (11.5-14.5); White Blood Count 6.1 K/mcL (4.3-11.1)
[2021-09-11 02:10] LABS: Calcium 8.5 mg/dL (8.6-10.3)
[2021-09-11] MEDS: *HR* Heparin 5,000 UNIT/ML VIAL SQ SCH ×3 (05:33→20:59)
[2021-09-11] MEDS: Piperacillin/Tazobactam 3.375 GM in 0.9 % Sodium Chloride Mini Bag 100 ML IVPB SCH ×2 (05:34→18:08)
[2021-09-11] MEDS: lisinopriL 20 MG TABLET GTUBE SCH ×2 (08:38→21:00)
[2021-09-11] MEDS: Lactobacillus 1 EACH CAP.SPRINK GTUBE SCH (08:38)
[2021-09-11] MEDS: Aspirin 81 MG TAB.CHEW GTUBE SCH (08:38)
[2021-09-11] MEDS: Pyridoxine (B-6) 50 MG TABLET GTUBE SCH (08:38)
[2021-09-11] MEDS: Folic Acid 1 MG TABLET GTUBE SCH (08:38)
[2021-09-11] MEDS: Cyanocobalamin (B-12) 1,000 MCG TABLET GTUBE SCH (08:38)
[2021-09-11] MEDS: Divalproex Sodium 125 MG Sprinkle Capsule (DR) GTUBE SCH ×2 (08:38→21:00)
[2021-09-11] MEDS: Metoprolol 100 MG TABLET GTUBE SCH ×2 (08:38→20:59)
[2021-09-11] MEDS: Ferrous Sulfate Oral Soln 300 MG/5 ML UDC GTUBE SCH ×2 (08:39→20:59)
[2021-09-11] MEDS: Multivit/Ca/Min/Fe/FA 1 TAB TABLET GTUBE SCH (08:39)
[2021-09-11] MEDS: QUEtiapine Fumarate 25 MG TABLET GTUBE SCH ×2 (08:39→20:59)
[2021-09-11 10:38] LABS: Magnesium 1.8 mg/dL (1.6-2.6); Phosphorous 2.9 mg/dL (2.7-4.5)
[2021-09-12] MEDS: Insulin LISPRO 300 UNITS/3 ML VIAL SUBQ SCH ×7 (01:04→23:36)
[2021-09-12] MEDS: *HR* LORazepam 0.5 MG TABLET GTUBE SCH ×3 (01:04→17:15)
[2021-09-12 02:04] LABS: Hematocrit 30.6 % (35.3-44.9); Hemoglobin 9.3 g/dL (11.5-15.4); Mean Corpuscular HGB Conc 30.4 g/dL (31.6-35.5); Mean Corpuscular Hemoglobin 26.9 pg (28.0-33.3); Mean Corpuscular Volume 88.4 fL (83.0-100.0); Mean Platelet Volume 9.8 fL (9.4-12.4); Platelet Count 237 K/mcL (140-400); Red Blood Count 3.46 M/mcL (3.82-4.97); Red Cell Distribution Width 17.1 % (11.5-14.5)
[2021-09-12 02:07] LABS: White Blood Count 9.7 K/mcL (4.3-11.1)
[2021-09-12 02:34] LABS: Calcium 8.6 mg/dL (8.6-10.3); Potassium 6.6 mEq/L (3.5-5.1)
[2021-09-12] MEDS ORDERED: Insulin LISPRO 300 UNITS/3 ML VIAL SUBQ ONE (02:42)
[2021-09-12] MEDS ORDERED: *HR* Dextrose 50 % in Water (Syg) 50 ML SYRINGE IVP ONE (02:43)
[2021-09-12] MEDS: Piperacillin/Tazobactam 3.375 GM in 0.9 % Sodium Chloride Mini Bag 100 ML IVPB SCH ×2 (06:26→17:15)
[2021-09-12] MEDS: *HR* Heparin 5,000 UNIT/ML VIAL SQ SCH ×3 (06:26→21:24)
[2021-09-12 07:41] LABS: Calcium 8.8 mg/dL (8.6-10.3)
[2021-09-12] MEDS: hydrALAZINE 10 MG TABLET GTUBE SCH (08:29)
[2021-09-12] MEDS: Divalproex Sodium 125 MG Sprinkle Capsule (DR) GTUBE SCH ×2 (08:29→19:40)
[2021-09-12] MEDS: Metoprolol 100 MG TABLET GTUBE SCH ×2 (08:29→19:41)
[2021-09-12] MEDS: Pyridoxine (B-6) 50 MG TABLET GTUBE SCH (08:30)
[2021-09-12] MEDS: Multivit/Ca/Min/Fe/FA 1 TAB TABLET GTUBE SCH (08:30)
[2021-09-12] MEDS: QUEtiapine Fumarate 25 MG TABLET GTUBE SCH ×2 (08:30→19:41)
[2021-09-12] MEDS: Folic Acid 1 MG TABLET GTUBE SCH (08:30)
[2021-09-12] MEDS: Cyanocobalamin (B-12) 1,000 MCG TABLET GTUBE SCH (08:30)
[2021-09-12] MEDS: Aspirin 81 MG TAB.CHEW GTUBE SCH (08:30)
[2021-09-12] MEDS: Lactobacillus 1 EACH CAP.SPRINK GTUBE SCH (08:30)
[2021-09-12] MEDS: lisinopriL 20 MG TABLET GTUBE SCH ×2 (08:31→19:41)
[2021-09-12] MEDS: Ferrous Sulfate Oral Soln 300 MG/5 ML UDC GTUBE SCH ×2 (08:31→19:40)
[2021-09-12] MEDS ORDERED: 0.9 % Sodium Chloride 250 ML IVC PRN (11:20)
[2021-09-12] MEDS ORDERED: *HR* Heparin 10,000 UNIT/10 ML VIAL IV PRN (11:20)
[2021-09-12] MEDS ORDERED: Albumin 25% 25gram/100mL 25 GM/100 ML IV.SOLN IVPB PRN (11:20)
[2021-09-13] MEDS: *HR* LORazepam 0.5 MG TABLET GTUBE SCH ×3 (01:17→17:18)
[2021-09-13] MEDS: hydrALAZINE 10 MG TABLET GTUBE SCH ×4 (01:36→17:18)
[2021-09-13 03:06] LABS: Calcium 8.5 mg/dL (8.6-10.3); Potassium 5.5 mEq/L (3.5-5.1)
[2021-09-13] MEDS: Insulin LISPRO 300 UNITS/3 ML VIAL SUBQ SCH ×5 (04:13→20:26)
[2021-09-13] MEDS: *HR* Heparin 5,000 UNIT/ML VIAL SQ SCH ×3 (05:36→20:26)
[2021-09-13] MEDS: Piperacillin/Tazobactam 3.375 GM in 0.9 % Sodium Chloride Mini Bag 100 ML IVPB SCH ×2 (05:36→17:18)
[2021-09-13] MEDS: Ferrous Sulfate Oral Soln 300 MG/5 ML UDC GTUBE SCH ×2 (08:36→20:26)
[2021-09-13] MEDS: Cyanocobalamin (B-12) 1,000 MCG TABLET GTUBE SCH (08:37)
[2021-09-13] MEDS: Metoprolol 100 MG TABLET GTUBE SCH ×2 (08:37→20:26)
[2021-09-13] MEDS: Lactobacillus 1 EACH CAP.SPRINK GTUBE SCH (08:37)
[2021-09-13] MEDS: Multivit/Ca/Min/Fe/FA 1 TAB TABLET GTUBE SCH (08:37)
[2021-09-13] MEDS: Folic Acid 1 MG TABLET GTUBE SCH (08:37)
[2021-09-13] MEDS: QUEtiapine Fumarate 25 MG TABLET GTUBE SCH ×2 (08:37→20:26)
[2021-09-13] MEDS: Divalproex Sodium 125 MG Sprinkle Capsule (DR) GTUBE SCH ×2 (08:37→20:26)
[2021-09-13] MEDS: lisinopriL 20 MG TABLET GTUBE SCH ×2 (08:37→20:27)
[2021-09-13] MEDS: Aspirin 81 MG TAB.CHEW GTUBE SCH (08:37)
[2021-09-13] MEDS: Pyridoxine (B-6) 50 MG TABLET GTUBE SCH (08:38)
[2021-09-13] MEDS: *HR* Dextrose 50 % in Water (Syg) 50 ML SYRINGE IVP PRN (11:43)
[2021-09-14] MEDS: Insulin LISPRO 300 UNITS/3 ML VIAL SUBQ SCH ×6 (00:06→21:31)
[2021-09-14] MEDS: *HR* LORazepam 0.5 MG TABLET GTUBE SCH ×3 (00:54→16:31)
[2021-09-14 03:39] LABS: Calcium 9.1 mg/dL (8.6-10.3); Potassium 5.5 mEq/L (3.5-5.1)
[2021-09-14] MEDS: *HR* Heparin 5,000 UNIT/ML VIAL SQ SCH ×3 (04:52→21:25)
[2021-09-14] MEDS: Piperacillin/Tazobactam 3.375 GM in 0.9 % Sodium Chloride Mini Bag 100 ML IVPB SCH ×2 (04:52→20:01)
[2021-09-14] MEDS: Ferrous Sulfate Oral Soln 300 MG/5 ML UDC GTUBE SCH ×2 (08:06→20:12)
[2021-09-14] MEDS: Folic Acid 1 MG TABLET GTUBE SCH (08:06)
[2021-09-14] MEDS: Multivit/Ca/Min/Fe/FA 1 TAB TABLET GTUBE SCH (08:07)
[2021-09-14] MEDS: Metoprolol 100 MG TABLET GTUBE SCH ×2 (08:07→20:12)
[2021-09-14] MEDS: Aspirin 81 MG TAB.CHEW GTUBE SCH (08:07)
[2021-09-14] MEDS: QUEtiapine Fumarate 25 MG TABLET GTUBE SCH ×2 (08:07→20:13)
[2021-09-14] MEDS: Cyanocobalamin (B-12) 1,000 MCG TABLET GTUBE SCH (08:07)
[2021-09-14] MEDS: Divalproex Sodium 125 MG Sprinkle Capsule (DR) GTUBE SCH ×2 (08:07→20:13)
[2021-09-14] MEDS: Lactobacillus 1 EACH CAP.SPRINK GTUBE SCH (08:07)
[2021-09-14] MEDS: hydrALAZINE 10 MG TABLET GTUBE SCH (08:08)
[2021-09-14] MEDS: lisinopriL 20 MG TABLET GTUBE SCH ×2 (08:08→20:13)
[2021-09-14] MEDS: Pyridoxine (B-6) 50 MG TABLET GTUBE SCH (08:08)
[2021-09-14] MEDS ORDERED: *HR* Heparin 10,000 UNIT/10 ML VIAL IV PRN (09:51)
[2021-09-14] MEDS ORDERED: 0.9 % Sodium Chloride 250 ML IVC PRN (09:51)
[2021-09-14] MEDS ORDERED: Albumin 25% 25gram/100mL 25 GM/100 ML IV.SOLN IVPB ONE (21:03)
[2021-09-15] MEDS: Insulin LISPRO 300 UNITS/3 ML VIAL SUBQ SCH ×6 (00:18→22:41)
[2021-09-15] MEDS: *HR* LORazepam 0.5 MG TABLET GTUBE SCH ×3 (00:22→16:55)
[2021-09-15] MEDS: hydrALAZINE 10 MG TABLET GTUBE SCH ×4 (00:22→16:55)
[2021-09-15 03:12] LABS: Hemoglobin 8.9 g/dL (11.5-15.4); Mean Corpuscular HGB Conc 30.7 g/dL (31.6-35.5); Mean Corpuscular Hemoglobin 26.7 pg (28.0-33.3); Mean Corpuscular Volume 87.1 fL (83.0-100.0); Mean Platelet Volume 9.9 fL (9.4-12.4); Platelet Count 290 K/mcL (140-400); Red Blood Count 3.33 M/mcL (3.82-4.97); White Blood Count 9.6 K/mcL (4.3-11.1)
[2021-09-15 03:34] LABS: Calcium 8.9 mg/dL (8.6-10.3); Potassium 3.9 mEq/L (3.5-5.1)
[2021-09-15] MEDS: *HR* Heparin 5,000 UNIT/ML VIAL SQ SCH ×3 (05:48→22:41)
[2021-09-15] MEDS: Piperacillin/Tazobactam 3.375 GM in 0.9 % Sodium Chloride Mini Bag 100 ML IVPB SCH (06:35)
[2021-09-15] MEDS: Metoprolol 100 MG TABLET GTUBE SCH ×2 (07:55→20:11)
[2021-09-15] MEDS: lisinopriL 20 MG TABLET GTUBE SCH ×2 (07:57→20:12)
[2021-09-15] MEDS: Ferrous Sulfate Oral Soln 300 MG/5 ML UDC GTUBE SCH ×2 (07:57→20:11)
[2021-09-15] MEDS: Cyanocobalamin (B-12) 1,000 MCG TABLET GTUBE SCH (07:58)
[2021-09-15] MEDS: Pyridoxine (B-6) 50 MG TABLET GTUBE SCH (07:58)
[2021-09-15] MEDS: Aspirin 81 MG TAB.CHEW GTUBE SCH (07:58)
[2021-09-15] MEDS: Divalproex Sodium 125 MG Sprinkle Capsule (DR) GTUBE SCH ×2 (07:58→20:11)
[2021-09-15] MEDS: Lactobacillus 1 EACH CAP.SPRINK GTUBE SCH (07:58)
[2021-09-15] MEDS: QUEtiapine Fumarate 25 MG TABLET GTUBE SCH ×2 (07:58→20:12)
[2021-09-15] MEDS: Folic Acid 1 MG TABLET GTUBE SCH (07:58)
[2021-09-15] MEDS: Multivit/Ca/Min/Fe/FA 1 TAB TABLET GTUBE SCH (07:59)
[2021-09-16] MEDS: hydrALAZINE 10 MG TABLET GTUBE SCH ×4 (01:01→17:56)
[2021-09-16] MEDS: Insulin LISPRO 300 UNITS/3 ML VIAL SUBQ SCH ×7 (01:01→23:40)
[2021-09-16] MEDS: *HR* LORazepam 0.5 MG TABLET GTUBE SCH ×4 (01:01→23:27)
[2021-09-16 01:54] LABS: Calcium 9.6 mg/dL (8.6-10.3); Potassium 3.8 mEq/L (3.5-5.1)
[2021-09-16] MEDS: *HR* Heparin 5,000 UNIT/ML VIAL SQ SCH ×3 (06:06→20:35)
[2021-09-16] MEDS: Ferrous Sulfate Oral Soln 300 MG/5 ML UDC GTUBE SCH ×2 (09:50→20:35)
[2021-09-16] MEDS: Aspirin 81 MG TAB.CHEW GTUBE SCH (09:50)
[2021-09-16] MEDS: Lactobacillus 1 EACH CAP.SPRINK GTUBE SCH (09:50)
[2021-09-16] MEDS: Multivit/Ca/Min/Fe/FA 1 TAB TABLET GTUBE SCH (09:50)
[2021-09-16] MEDS: lisinopriL 20 MG TABLET GTUBE SCH ×2 (09:50→20:36)
[2021-09-16] MEDS: QUEtiapine Fumarate 25 MG TABLET GTUBE SCH ×2 (09:50→20:35)
[2021-09-16] MEDS: Divalproex Sodium 125 MG Sprinkle Capsule (DR) GTUBE SCH ×2 (09:51→20:36)
[2021-09-16] MEDS: Cyanocobalamin (B-12) 1,000 MCG TABLET GTUBE SCH (09:51)
[2021-09-16] MEDS: Pyridoxine (B-6) 50 MG TABLET GTUBE SCH (09:51)
[2021-09-16] MEDS: Metoprolol 100 MG TABLET GTUBE SCH ×2 (09:51→20:36)
[2021-09-16] MEDS: Folic Acid 1 MG TABLET GTUBE SCH (09:51)
[2021-09-17] MEDS: Insulin LISPRO 300 UNITS/3 ML VIAL SUBQ SCH ×5 (04:16→20:22)
[2021-09-17 04:21] LABS: Calcium 9.5 mg/dL (8.6-10.3); Potassium 4.2 mEq/L (3.5-5.1)
[2021-09-17] MEDS: *HR* Heparin 5,000 UNIT/ML VIAL SQ SCH ×3 (06:09→22:16)
[2021-09-17] MEDS ORDERED: 0.9 % Sodium Chloride 250 ML IVC PRN (07:20)
[2021-09-17] MEDS ORDERED: 0.9 % Sodium Chloride 2,000 ML PRIME SCH (07:30)
[2021-09-17] MEDS: Divalproex Sodium 125 MG Sprinkle Capsule (DR) GTUBE SCH ×2 (08:32→20:01)
[2021-09-17] MEDS: Pyridoxine (B-6) 50 MG TABLET GTUBE SCH (08:33)
[2021-09-17] MEDS: Multivit/Ca/Min/Fe/FA 1 TAB TABLET GTUBE SCH (08:33)
[2021-09-17] MEDS: QUEtiapine Fumarate 25 MG TABLET GTUBE SCH ×2 (08:35→20:01)
[2021-09-17] MEDS: Lactobacillus 1 EACH CAP.SPRINK GTUBE SCH (08:35)
[2021-09-17] MEDS: Cyanocobalamin (B-12) 1,000 MCG TABLET GTUBE SCH (08:35)
[2021-09-17] MEDS: Folic Acid 1 MG TABLET GTUBE SCH (08:35)
[2021-09-17] MEDS: *HR* LORazepam 0.5 MG TABLET GTUBE SCH ×2 (08:36→18:57)
[2021-09-17] MEDS: Aspirin 81 MG TAB.CHEW GTUBE SCH (08:37)
[2021-09-17] MEDS: Ferrous Sulfate Oral Soln 300 MG/5 ML UDC GTUBE SCH ×2 (08:38→20:00)
[2021-09-17] MEDS: hydrALAZINE 10 MG TABLET GTUBE SCH (08:41)
[2021-09-17] MEDS: Metoprolol 100 MG TABLET GTUBE SCH ×2 (08:41→20:01)
[2021-09-17] MEDS: lisinopriL 20 MG TABLET GTUBE SCH ×2 (08:41→20:00)
[2021-09-18] MEDS: *HR* LORazepam 0.5 MG TABLET GTUBE SCH ×3 (02:22→17:52)
[2021-09-18] MEDS: hydrALAZINE 10 MG TABLET GTUBE SCH ×4 (02:22→17:54)
[2021-09-18] MEDS: Insulin LISPRO 300 UNITS/3 ML VIAL SUBQ SCH ×6 (04:03→21:01)
[2021-09-18 05:18] LABS: Calcium 9.3 mg/dL (8.6-10.3); Potassium 4.1 mEq/L (3.5-5.1)
[2021-09-18] MEDS: *HR* Heparin 5,000 UNIT/ML VIAL SQ SCH ×3 (06:21→23:04)
[2021-09-18] MEDS: Lactobacillus 1 EACH CAP.SPRINK GTUBE SCH (10:37)
[2021-09-18] MEDS: Metoprolol 100 MG TABLET GTUBE SCH ×2 (10:37→21:02)
[2021-09-18] MEDS: Pyridoxine (B-6) 50 MG TABLET GTUBE SCH (10:37)
[2021-09-18] MEDS: Aspirin 81 MG TAB.CHEW GTUBE SCH (10:38)
[2021-09-18] MEDS: Divalproex Sodium 125 MG Sprinkle Capsule (DR) GTUBE SCH ×2 (10:38→21:02)
[2021-09-18] MEDS: Multivit/Ca/Min/Fe/FA 1 TAB TABLET GTUBE SCH (10:38)
[2021-09-18] MEDS: Cyanocobalamin (B-12) 1,000 MCG TABLET GTUBE SCH (10:38)
[2021-09-18] MEDS: Folic Acid 1 MG TABLET GTUBE SCH (10:38)
[2021-09-18] MEDS: QUEtiapine Fumarate 25 MG TABLET GTUBE SCH ×2 (10:43→21:02)
[2021-09-18] MEDS: Ferrous Sulfate Oral Soln 300 MG/5 ML UDC GTUBE SCH ×2 (10:43→21:01)
[2021-09-18] MEDS: lisinopriL 20 MG TABLET GTUBE SCH ×2 (10:47→21:02)
[2021-09-18] MEDS: Scopolamine Patch 1.5 MG PATCH.TD72 TD SCH (13:35)
[2021-09-19] MEDS: *HR* LORazepam 0.5 MG TABLET GTUBE SCH ×3 (01:44→15:00)
[2021-09-19] MEDS: Insulin LISPRO 300 UNITS/3 ML VIAL SUBQ SCH ×6 (01:47→21:14)
[2021-09-19 03:41] LABS: Basophils # 0.1 K/mcL (0.0-0.2); Basophils % 0.9 %; Eosinophils # 0.5 K/mcL (0.0-0.6); Eosinophils % 4.4 %; Hematocrit 30.2 % (35.3-44.9); Hemoglobin 9.2 g/dL (11.5-15.4); Immature Granulocytes % 1.4 % (0-4); Lymphocytes # 3.5 K/mcL (0.6-4.6); Lymphocytes % 31.4 %; Mean Corpuscular HGB Conc 30.5 g/dL (31.6-35.5); Mean Corpuscular Hemoglobin 27.1 pg (28.0-33.3); Mean Corpuscular Volume 88.8 fL (83.0-100.0); Mean Platelet Volume 9.2 fL (9.4-12.4); Monocytes # 0.6 K/mcL (0.0-1.3); Monocytes % 5.1 %; Neutrophils # 6.4 K/mcL (1.6-8.9); Platelet Count 397 K/mcL (140-400); Red Cell Distribution Width 18.4 % (11.5-14.5); Segmented Neutrophils % 56.8 %; White Blood Count 11.3 K/mcL (4.3-11.1)
[2021-09-19 04:05] LABS: Calcium 10.3 mg/dL (8.6-10.3); Potassium 4.7 mEq/L (3.5-5.1)
[2021-09-19] MEDS: *HR* Heparin 5,000 UNIT/ML VIAL SQ SCH ×2 (05:43→15:00)
[2021-09-19] MEDS ORDERED: 0.9 % Sodium Chloride 250 ML IVC PRN (07:32)
[2021-09-19] MEDS: Ferrous Sulfate Oral Soln 300 MG/5 ML UDC GTUBE SCH ×2 (08:02→21:14)
[2021-09-19] MEDS: Docusate Oral Soln 100 MG/10 ML UDC GTUBE SCH (08:02)
[2021-09-19] MEDS: Divalproex Sodium 125 MG Sprinkle Capsule (DR) GTUBE SCH ×2 (08:02→21:13)
[2021-09-19] MEDS: Pyridoxine (B-6) 50 MG TABLET GTUBE SCH (08:02)
[2021-09-19] MEDS: Multivit/Ca/Min/Fe/FA 1 TAB TABLET GTUBE SCH (08:03)
[2021-09-19] MEDS: Folic Acid 1 MG TABLET GTUBE SCH (08:03)
[2021-09-19] MEDS: Lactobacillus 1 EACH CAP.SPRINK GTUBE SCH (08:03)
[2021-09-19] MEDS: Aspirin 81 MG TAB.CHEW GTUBE SCH (08:03)
[2021-09-19] MEDS: QUEtiapine Fumarate 25 MG TABLET GTUBE SCH ×2 (08:03→21:14)
[2021-09-19] MEDS: hydrALAZINE 10 MG TABLET GTUBE SCH (08:04)
[2021-09-19] MEDS: Metoprolol 100 MG TABLET GTUBE SCH ×2 (08:04→21:13)
[2021-09-19] MEDS: lisinopriL 20 MG TABLET GTUBE SCH ×2 (08:05→21:13)
[2021-09-19] MEDS: Cyanocobalamin (B-12) 1,000 MCG TABLET GTUBE SCH (08:05)
[2021-09-20] MEDS: *HR* LORazepam 0.5 MG TABLET GTUBE SCH ×3 (00:11→16:29)
[2021-09-20] MEDS: *HR* Heparin 5,000 UNIT/ML VIAL SQ SCH ×3 (00:11→13:43)
[2021-09-20] MEDS: hydrALAZINE 10 MG TABLET GTUBE SCH ×4 (00:12→16:35)
[2021-09-20] MEDS: Insulin LISPRO 300 UNITS/3 ML VIAL SUBQ SCH ×6 (00:12→20:44)
[2021-09-20] MEDS: Ferrous Sulfate Oral Soln 300 MG/5 ML UDC GTUBE SCH ×2 (08:13→20:42)
[2021-09-20] MEDS: Pyridoxine (B-6) 50 MG TABLET GTUBE SCH (08:13)
[2021-09-20] MEDS: QUEtiapine Fumarate 25 MG TABLET GTUBE SCH ×2 (08:14→20:43)
[2021-09-20] MEDS: Divalproex Sodium 125 MG Sprinkle Capsule (DR) GTUBE SCH ×2 (08:14→20:43)
[2021-09-20] MEDS: Metoprolol 100 MG TABLET GTUBE SCH ×2 (08:14→20:43)
[2021-09-20] MEDS: Lactobacillus 1 EACH CAP.SPRINK GTUBE SCH (08:14)
[2021-09-20] MEDS: lisinopriL 20 MG TABLET GTUBE SCH ×2 (08:14→20:43)
[2021-09-20] MEDS: Cyanocobalamin (B-12) 1,000 MCG TABLET GTUBE SCH (08:14)
[2021-09-20] MEDS: Folic Acid 1 MG TABLET GTUBE SCH (08:14)
[2021-09-20] MEDS: Multivit/Ca/Min/Fe/FA 1 TAB TABLET GTUBE SCH (08:14)
[2021-09-20] MEDS: Docusate Oral Soln 100 MG/10 ML UDC GTUBE SCH (08:15)
[2021-09-20] MEDS: Aspirin 81 MG TAB.CHEW GTUBE SCH (08:22)
[2021-09-20 11:15] LABS: Influenza A PCR Negative (Negative); Influenza B PCR Negative (Negative); Resp. Syncytial Virus PCR Negative (Negative); SARS-CoV-2 by PCR (In House) Negative (Negative)
[2021-09-21] MEDS: *HR* LORazepam 0.5 MG TABLET GTUBE SCH ×3 (01:19→14:37)
[2021-09-21] MEDS: Insulin LISPRO 300 UNITS/3 ML VIAL SUBQ SCH ×6 (01:20→21:01)
[2021-09-21 02:03] LABS: Basophils # 0.1 K/mcL (0.0-0.2); Basophils % 0.5 %; Eosinophils # 0.3 K/mcL (0.0-0.6); Eosinophils % 2.3 %; Hematocrit 28.2 % (35.3-44.9); Hemoglobin 8.8 g/dL (11.5-15.4); Immature Granulocytes % 0.9 % (0-4); Lymphocytes # 2.2 K/mcL (0.6-4.6); Lymphocytes % 18.8 %; Mean Corpuscular HGB Conc 31.2 g/dL (31.6-35.5); Mean Corpuscular Hemoglobin 28.1 pg (28.0-33.3); Mean Corpuscular Volume 90.1 fL (83.0-100.0); Mean Platelet Volume 9.1 fL (9.4-12.4); Monocytes # 0.7 K/mcL (0.0-1.3); Monocytes % 5.4 %; Neutrophils # 8.6 K/mcL (1.6-8.9); Platelet Count 343 K/mcL (140-400); Red Blood Count 3.13 M/mcL (3.82-4.97); Red Cell Distribution Width 18.5 % (11.5-14.5); Segmented Neutrophils % 72.1 %; White Blood Count 11.9 K/mcL (4.3-11.1)
[2021-09-21 02:25] LABS: Calcium 10.4 mg/dL (8.6-10.3); Potassium 3.7 mEq/L (3.5-5.1)
[2021-09-21] MEDS: *HR* Heparin 5,000 UNIT/ML VIAL SQ SCH ×3 (06:32→21:00)
[2021-09-21] MEDS ORDERED: 0.9 % Sodium Chloride 250 ML IVC PRN (07:19)
[2021-09-21] MEDS: hydrALAZINE 10 MG TABLET GTUBE SCH (08:08)
[2021-09-21] MEDS: Metoprolol 100 MG TABLET GTUBE SCH ×2 (08:09→21:00)
[2021-09-21] MEDS: Cyanocobalamin (B-12) 1,000 MCG TABLET GTUBE SCH (08:09)
[2021-09-21] MEDS: Multivit/Ca/Min/Fe/FA 1 TAB TABLET GTUBE SCH (08:09)
[2021-09-21] MEDS: Pyridoxine (B-6) 50 MG TABLET GTUBE SCH (08:09)
[2021-09-21] MEDS: Ferrous Sulfate Oral Soln 300 MG/5 ML UDC GTUBE SCH ×2 (09:01→21:00)
[2021-09-21] MEDS: Folic Acid 1 MG TABLET GTUBE SCH (09:01)
[2021-09-21] MEDS: Divalproex Sodium 125 MG Sprinkle Capsule (DR) GTUBE SCH ×2 (09:04→21:00)
[2021-09-21] MEDS: Aspirin 81 MG TAB.CHEW GTUBE SCH (09:05)
[2021-09-21] MEDS: QUEtiapine Fumarate 25 MG TABLET GTUBE SCH ×2 (09:05→21:00)
[2021-09-21] MEDS: Lactobacillus 1 EACH CAP.SPRINK GTUBE SCH (09:38)
[2021-09-21] MEDS: Docusate Oral Soln 100 MG/10 ML UDC GTUBE SCH (09:38)
[2021-09-21] MEDS: Scopolamine Patch 1.5 MG PATCH.TD72 TD SCH (14:37)
[2021-09-22] MEDS: Insulin LISPRO 300 UNITS/3 ML VIAL SUBQ SCH ×6 (00:08→20:40)
[2021-09-22] MEDS: hydrALAZINE 10 MG TABLET GTUBE SCH (00:38)
[2021-09-22] MEDS ORDERED: Albumin 25% 25gram/100mL 25 GM/100 ML IV.SOLN IVPB ONE (02:08)
[2021-09-22] MEDS: *HR* Heparin 5,000 UNIT/ML VIAL SQ SCH ×3 (06:28→20:41)
[2021-09-22] MEDS: Ferrous Sulfate Oral Soln 300 MG/5 ML UDC GTUBE SCH ×2 (09:04→20:41)
[2021-09-22] MEDS: Aspirin 81 MG TAB.CHEW GTUBE SCH (09:05)
[2021-09-22] MEDS: Folic Acid 1 MG TABLET GTUBE SCH (09:05)
[2021-09-22] MEDS: Pyridoxine (B-6) 50 MG TABLET GTUBE SCH (09:05)
[2021-09-22] MEDS: Lactobacillus 1 EACH CAP.SPRINK GTUBE SCH (09:05)
[2021-09-22] MEDS: *HR* LORazepam 0.5 MG TABLET GTUBE SCH ×3 (09:05→17:43)
[2021-09-22] MEDS: Cyanocobalamin (B-12) 1,000 MCG TABLET GTUBE SCH (09:05)
[2021-09-22] MEDS: Multivit/Ca/Min/Fe/FA 1 TAB TABLET GTUBE SCH (09:05)
[2021-09-22] MEDS: QUEtiapine Fumarate 25 MG TABLET GTUBE SCH ×2 (09:06→20:41)
[2021-09-22] MEDS: Docusate Oral Soln 100 MG/10 ML UDC GTUBE SCH (09:06)
[2021-09-22] MEDS: Metoprolol 100 MG TABLET GTUBE SCH ×2 (09:06→20:41)
[2021-09-22] MEDS: Divalproex Sodium 125 MG Sprinkle Capsule (DR) GTUBE SCH ×2 (09:06→20:42)
[2021-09-23] MEDS: Insulin LISPRO 300 UNITS/3 ML VIAL SUBQ SCH ×7 (00:59→20:59)
[2021-09-23] MEDS: *HR* LORazepam 0.5 MG TABLET GTUBE SCH ×3 (00:59→16:41)
[2021-09-23] MEDS: *HR* Heparin 5,000 UNIT/ML VIAL SQ SCH ×3 (05:45→21:01)
[2021-09-23] MEDS: Aspirin 81 MG TAB.CHEW GTUBE SCH (09:38)
[2021-09-23] MEDS: QUEtiapine Fumarate 25 MG TABLET GTUBE SCH ×2 (09:38→21:01)
[2021-09-23] MEDS: Metoprolol 100 MG TABLET GTUBE SCH ×2 (09:38→21:00)
[2021-09-23] MEDS: Lactobacillus 1 EACH CAP.SPRINK GTUBE SCH (09:38)
[2021-09-23] MEDS: Ferrous Sulfate Oral Soln 300 MG/5 ML UDC GTUBE SCH ×2 (09:38→20:57)
[2021-09-23] MEDS: Folic Acid 1 MG TABLET GTUBE SCH (09:38)
[2021-09-23] MEDS: Cyanocobalamin (B-12) 1,000 MCG TABLET GTUBE SCH (09:38)
[2021-09-23] MEDS: Multivit/Ca/Min/Fe/FA 1 TAB TABLET GTUBE SCH (09:38)
[2021-09-23] MEDS: Pyridoxine (B-6) 50 MG TABLET GTUBE SCH (09:38)
[2021-09-23] MEDS: Divalproex Sodium 125 MG Sprinkle Capsule (DR) GTUBE SCH ×2 (09:38→21:00)
[2021-09-23] MEDS: Docusate Oral Soln 100 MG/10 ML UDC GTUBE SCH (09:39)
[2021-09-24] MEDS: Insulin LISPRO 300 UNITS/3 ML VIAL SUBQ SCH ×6 (00:33→21:11)
[2021-09-24] MEDS: *HR* Heparin 5,000 UNIT/ML VIAL SQ SCH ×3 (03:29→23:12)
[2021-09-24] MEDS: *HR* LORazepam 0.5 MG TABLET GTUBE SCH ×3 (06:37→23:12)
[2021-09-24 07:06] LABS: Hematocrit 25.2 % (35.3-44.9); Hemoglobin 8.1 g/dL (11.5-15.4); Mean Corpuscular HGB Conc 32.1 g/dL (31.6-35.5); Mean Corpuscular Volume 87.2 fL (83.0-100.0); Mean Platelet Volume 9.2 fL (9.4-12.4); Platelet Count 338 K/mcL (140-400); Red Blood Count 2.89 M/mcL (3.82-4.97); Red Cell Distribution Width 18.5 % (11.5-14.5); White Blood Count 10.1 K/mcL (4.3-11.1)
[2021-09-24 07:30] LABS: Potassium 3.4 mEq/L (3.5-5.1)
[2021-09-24] MEDS: Lactobacillus 1 EACH CAP.SPRINK GTUBE SCH (08:04)
[2021-09-24] MEDS: Folic Acid 1 MG TABLET GTUBE SCH (08:04)
[2021-09-24] MEDS: Metoprolol 100 MG TABLET GTUBE SCH ×2 (08:04→23:12)
[2021-09-24] MEDS: Aspirin 81 MG TAB.CHEW GTUBE SCH (08:04)
[2021-09-24] MEDS: Cyanocobalamin (B-12) 1,000 MCG TABLET GTUBE SCH (08:04)
[2021-09-24] MEDS: Divalproex Sodium 125 MG Sprinkle Capsule (DR) GTUBE SCH ×2 (08:05→23:12)
[2021-09-24] MEDS: Ferrous Sulfate Oral Soln 300 MG/5 ML UDC GTUBE SCH ×2 (08:05→23:12)
[2021-09-24] MEDS: Docusate Oral Soln 100 MG/10 ML UDC GTUBE SCH (08:05)
[2021-09-24] MEDS: Pyridoxine (B-6) 50 MG TABLET GTUBE SCH (08:05)
[2021-09-24] MEDS: QUEtiapine Fumarate 25 MG TABLET GTUBE SCH ×2 (08:05→23:12)
[2021-09-24] MEDS: Multivit/Ca/Min/Fe/FA 1 TAB TABLET GTUBE SCH (08:05)
[2021-09-24] MEDS ORDERED: 0.9 % Sodium Chloride 250 ML IVC PRN (09:04)
[2021-09-24] MEDS ORDERED: Albumin 25% 25gram/100mL 25 GM/100 ML IV.SOLN IVPB ONE (11:32)
[2021-09-24] MEDS: Scopolamine Patch 1.5 MG PATCH.TD72 TD SCH (14:24)
[2021-09-24] MEDS: Valproic Acid INJ 250 MG in 0.9 % Sodium Chloride 100 ML IVPB SCH (23:12)
[2021-09-25] MEDS: Insulin LISPRO 300 UNITS/3 ML VIAL SUBQ SCH ×6 (01:00→20:15)
[2021-09-25] MEDS: Valproic Acid INJ 250 MG in 0.9 % Sodium Chloride 100 ML IVPB SCH (05:43)
[2021-09-25] MEDS: *HR* Heparin 5,000 UNIT/ML VIAL SQ SCH ×3 (05:44→21:51)
[2021-09-25] MEDS: *HR* LORazepam 0.5 MG TABLET GTUBE SCH ×3 (05:44→21:51)
[2021-09-25 06:50] LABS: Calcium 10.3 mg/dL (8.6-10.3); Potassium 3.3 mEq/L (3.5-5.1)
[2021-09-25] MEDS: Pyridoxine (B-6) 50 MG TABLET GTUBE SCH (09:34)
[2021-09-25] MEDS: Aspirin 81 MG TAB.CHEW GTUBE SCH (09:34)
[2021-09-25] MEDS: Multivit/Ca/Min/Fe/FA 1 TAB TABLET GTUBE SCH (09:34)
[2021-09-25] MEDS: Lactobacillus 1 EACH CAP.SPRINK GTUBE SCH (09:34)
[2021-09-25] MEDS: Cyanocobalamin (B-12) 1,000 MCG TABLET GTUBE SCH (09:34)
[2021-09-25] MEDS: Ferrous Sulfate Oral Soln 300 MG/5 ML UDC GTUBE SCH ×2 (09:35→20:15)
[2021-09-25] MEDS: QUEtiapine Fumarate 25 MG TABLET GTUBE SCH ×2 (09:35→20:16)
[2021-09-25] MEDS: Folic Acid 1 MG TABLET GTUBE SCH (09:35)
[2021-09-25] MEDS: Metoprolol 100 MG TABLET GTUBE SCH ×3 (09:35→21:59)
[2021-09-25] MEDS: Divalproex Sodium 125 MG Sprinkle Capsule (DR) GTUBE SCH (09:35)
[2021-09-25] MEDS: Docusate Oral Soln 100 MG/10 ML UDC GTUBE SCH (09:35)
[2021-09-25 11:56] VITALS: O2SAT 100
[2021-09-25 12:32] LABS: Influenza A PCR Negative (Negative); Influenza B PCR Negative (Negative); Resp. Syncytial Virus PCR Negative (Negative)
[2021-09-25 13:04] LABS: SARS-CoV-2 by PCR (In House) Negative (Negative)
[2021-09-25] MEDS: Valproic Acid Oral Soln 250 MG/5 ML UDC GTUBE SCH (17:19)
[2021-09-26] MEDS: Insulin LISPRO 300 UNITS/3 ML VIAL SUBQ SCH ×3 (00:51→08:00)
[2021-09-26] MEDS: Valproic Acid Oral Soln 250 MG/5 ML UDC GTUBE SCH ×2 (00:55→05:24)
[2021-09-26] MEDS: *HR* Heparin 5,000 UNIT/ML VIAL SQ SCH (05:23)
[2021-09-26] MEDS: *HR* LORazepam 0.5 MG TABLET GTUBE SCH (05:24)
[2021-09-26 06:02] VITALS: PULSE 81
[2021-09-26] MEDS ORDERED: *HR* Heparin 10,000 UNIT/10 ML VIAL IV PRN (07:36)
[2021-09-26] MEDS ORDERED: 0.9 % Sodium Chloride 250 ML IVC PRN (07:36)
[2021-09-26] MEDS: Folic Acid 1 MG TABLET GTUBE SCH (07:41)
[2021-09-26] MEDS: QUEtiapine Fumarate 25 MG TABLET GTUBE SCH (07:41)
[2021-09-26] MEDS: Multivit/Ca/Min/Fe/FA 1 TAB TABLET GTUBE SCH (07:41)
[2021-09-26] MEDS: Lactobacillus 1 EACH CAP.SPRINK GTUBE SCH (07:41)
[2021-09-26] MEDS: Aspirin 81 MG TAB.CHEW GTUBE SCH (07:41)
[2021-09-26] MEDS: Cyanocobalamin (B-12) 1,000 MCG TABLET GTUBE SCH (07:41)
[2021-09-26] MEDS: Docusate Oral Soln 100 MG/10 ML UDC GTUBE SCH (07:42)
[2021-09-26] MEDS: Pyridoxine (B-6) 50 MG TABLET GTUBE SCH (07:42)
[2021-09-26] MEDS: Metoprolol 100 MG TABLET GTUBE SCH (07:42)
[2021-09-26 11:39] VITALS: TEMP 97.9
[2021-09-26 11:51] VITALS: BP 115/56
== END 2021-09-26 11:53 | DRG 720 ==
LOC: 2NNU → SUATTDRO 09-05 00:44
PROVIDERS: ADMIT Internal Medicine; ATTEND Internal Medicine